=== PATIENT | female | born 1970 | race Caucasian/White ===

== ENCOUNTER → 2020-07-20 | Outpatient (CLI) | payer BC ==
--- NOTE | 2020-07-20 15:33 | REP ---
INDICATION: DIAG MAMMO/R BREAST MASS; R BREAST MASS. COMPARISON: no comparison breast imaging. TECHNIQUE: Bilateral CC and MLO) view(s) were taken. Magnified focal spot-compression CC, mediolateral, and mediolateral oblique images of the right breast are obtained. 3D tomography is carried out. Targeted right breast sonography is carried. FINDINGS: Breast parenchyma is heterogeneously dense in a pattern which may inhibit the sensitivity of mammography. However, the palpable mass is clearly seen to correspond to a spiculated irregularly marginated large mass in the 6 o'clock position of the right breast. This measures 3.5 x 2.1 by 2.7 centered meters mammographically. It contains numerous polymorphous excess Damon microcalcifications. It has spiculated margins. No other suspicious abnormality is observed in the right breast. The left breast shows no evidence of mass, architectural distortion, microcalcification or worrisome skin change. The Volpara volumetric breast density pattern is C. Targeted sonographic findings: Scanning at the area of the palpable lump at 6 o'clock position shows a hypoechoic spiculated irregularly marginated mass measuring 4.4 x 3.3 x 2.7 cm sonographically. There is internal blood flow. On some images there is a taller than wide configuration but overall the long axis is parallel to the skin. The lesion is certainly suspicious by ultrasound criteria.. IMPRESSION: BI-RADS category 5 highly suspicious right breast mammogram and ultrasound findings. Spiculated mass. A biopsy is recommended. This patient's [facility] lifetime breast cancer risk assessment score is 8.7%. This mammogram was interpreted with the aid of an FDA-approved computer-aided detection system. The patient states she had a clinical breast exam in June of 2020. The patient letter being requested is M4. RECOMMENDATION: Ultrasound-guided needle biopsy right breast mass is recommended with marker clip placement and post clip placement unilateral right breast mammography.. <Electronically signed by Henry Liang > 07/20/20 [id number]
== END ==
LOC: M WHC 10:51
PROVIDERS: ATTEND Physician Assistant
DX: N63.10 Unspecified lump in the right breast, unspecified quadrant (principal); R92.0 Mammographic microcalcification found on diagnostic imaging of breast
CPT/HCPCS: 76642; 77066; G0279

== ENCOUNTER → 2020-07-26 | Outpatient (CLI) | payer BC ==
[~2020-07-26] MED LIST: PARA1IUD IU
[2020-07-26 12:19] VITALS: BP 118/82
--- NOTE | 2020-07-26 17:04 | REP ---
INDICATION: N63.10 RT BREAST MASS,ABN RT AXILLARY LYMPH NODE,US GUIDED B. COMPARISON: Comparison sonography right breast 20 July 2020.. TECHNIQUE: Ultrasound guidance provided. FINDINGS: Sonographic guidance is provided to Dr. Lindsey performed ultrasound-guided needle biopsy and marker clip placement procedure right breast and right axilla. IMPRESSION: Sonographic guidance for needle biopsy procedure. <Electronically signed by Henry Liang > 07/26/20 [id number]
--- NOTE | 2020-07-26 17:07 | REP ---
INDICATION: N63.10 RT BREAST MASS,POST US GUIDED BIOPSY. Marker clip placement views. COMPARISON: Comparison mammography 20 July 2020. TECHNIQUE: Laterally exaggerated craniocaudal, true mediolateral, and mediolateral oblique mammographic views are obtained. This mammogram was interpreted with the aid of an FDA-approved computer-aided detection system. FINDINGS: The previously noted spiculated mass containing suspicious microcalcifications is again noted essentially unchanged. Needle biopsy marker clip is seen along the anterior inferior margin of the mass in good position. No hematoma is seen. . : IMPRESSION: Marker clip in good position left breast mass. RECOMMENDATION: Treatment according to biopsy results.. <Electronically signed by Henry Liang > 07/26/20 [id number]
--- NOTE | 2020-07-26 17:11 | REP ---
INDICATION: N63.0 PALPABLE MASS RT BREAST,R59.9 ABN RT AXILLARY LYMPH NO. Abnormal right axillary lymph node. Right breast mass. Lymph node enlargement. COMPARISON: Comparison is made with recent mammography.. TECHNIQUE: Targeted right axillary sonography. FINDINGS: Right axillary ultrasound is performed. There is a nearly anechoic enlarged abnormal lymph node in the right axilla measuring 2.5 x 2.5 x 0.9 cm. No hilar fatty architecture is seen. This is suspicious for metastatic disease. In addition, there are 3 normal appearing axillary lymph nodes with cortical margins less than 3 mm and central hilar hyperechoic fatty architecture. These measure as follows: 1.3 x 1.5 x 0.7, 0.7 x 0.6 x 0.4, and 0.9 x 0.7 x 0.3 cm respectively. No other significant finding. IMPRESSION: BI-RADS category 4 suspicious findings in the right axillary soft tissues. There is a abnormal enlarged lymph node in the right axilla 2.5 cm in greatest diameter. Metastatic disease must be suspected. Ultrasound-guided needle biopsy is being arranged. <Electronically signed by Henry Liang > 07/26/20 [id number]
--- NOTE | 2020-07-26 17:18 | REP ---
INDICATION: N63.0 PALPABLE MASS RT BREAST. Denser tissue at 2 o'clock and 10 o'clock position right breast. Palpable mass. COMPARISON: Recent right breast sonography.. TECHNIQUE: Targeted right breast sonography is carried out in the 2-3 o'clock and 10 o'clock positions as requested. FINDINGS: Heterogeneous fibroglandular background echotexture is seen. In the right breast at 3 o'clock, there is a 0.7 x 0.5 x 0.3 cm hypoechoic oval-shaped area with its long axis parallel to the skin. No internal vascularity was seen. This does not appear to represent a simple cyst. I cannot exclude a malignant focus. In the 10 o'clock position, 4 cm from the nipple, there is a complex cystic lesion measuring 1.0 x 0.4 x 0.7 cm. There is an adjacent blood vessel. There is enhanced through transmission. This has a benign appearance. 10 o'clock position in the right breast, 6 cm from the nipple, there is a cluster of simple appearing cysts within aggregate dimension of 1.1 cm. This has a benign appearance as well. IMPRESSION: Targeted sonography of the right breast performed. In addition to the known malignant mass which was already biopsied, at 3 o'clock position in the right breast, there is a 0.7 cm hypoechoic nodule which is does not meet criteria of a simple cyst. Malignancy cannot be excluded here. <Electronically signed by Henry Liang > 07/26/20 [id number]
--- NOTE | 2020-07-30 15:35 | ROOPDOC ---
[facility] Report Of Operation Report of Operation DATE OF PROCEDURE: 07/26/20 DIAGNOSIS: right breast suspicious lesion and right axillary abnormal lymph node with BIRADS5 mammogram PROCEDURE: Ultrasound guided biopsy of right breast suspicious lesion with clip placement and ultrasound guided biopsy of right axillary suspicious lymph node with clip placement SURGEON: Mallika Freire BLOOD LOSS: minimal COMPLICATIONS: none Lidocaine 1% LOT [id number] Expiration 09/2023 Sodium Bicarbonate 8.4% LOT [id number] Expiration 09/2020 R BREAST BX: Hydromark clip LOT [id number] Expiration 03/2023 SHAPE 3 Bx device: BARD [id number] x10 cm LOT [id number] Expiration 04/2023 R LYMPH NODE BX: Hydromark clip LOT [id number] Expiration 03/2023 SHAPE 4 Bx device: TEMNO 18G x 20 cm LOT [id number] Expiration 10/2023 Informed consent was obtained. The most common risk and possible complications including bleeding, hematoma, bruising, infection, injury to surrounding structures were explained to the patient and the patient expressed understanding. Patient was placed on the bed in the supine position. Appropriate time out was done stating patients name, date of , and the procedure to be performed. The right breast was prepped and draped in the usual fashion. The ultrasound was used to confirm the location of the lesions in the right breast at 6:00 and the lymph node with 7 mm cortical thickness was found in the right axilla. Procedure was started with the biopsy of the right breast. Plain Lidocaine 1% and 8.4% sodium bicarbonate 10:1 mix was used to anesthetize the skin, the biopsy site and tissues along the anticipated biopsy tract. Small skin incision was made with blade number 11. BARD Marquee 14G cannula with introducer ([id number]) was inserted through the incision and advanced under the ultrasound guidance to position immediately adjacent to the lesion. Next, the introducer was removed and BARD Marquee 14G biopsy device was places in the cannula. Pre- biopsy imaging, and post-biopsy imaging were captured. Five good core biopsies were taken at various levels of the lesion. Specimen was placed in formaldehyde, labeled with appropriate biopsy site and patients name, and sent to pathology for evaluation. Next, the biopsy device was withdrawn and a clip introducer was inserted into the biopsy site via the cannula. The SHAPE 3 Hydromark clip was deployed under sonographic guidance. Post-clip placement image was captured. Manual pressure over the biopsy cavity and tract was held after the clip introducer was withdrawn. No bleeding was noted upon removal of the pressure. At this time, our attention was shifted toward the abnormal right axillary lymph node. The right axilla was prepped and draped in the usual fashion. The ultrasound was used to confirm the location of enlarged lymph node with cortex measuring 7 mm. Plain Lidocaine 1% and 8.4% sodium bicarbonate 10:1 mix was used to anesthetize the skin, the biopsy site and tissues along the anticipated biopsy tract. Small skin incision was made with blade number 11. Temno 18G cannula with introducer was inserted through the incision and advanced under the ultrasound guidance to position immediately adjacent to the enlarged lymph node with 7 mm cortex. Next, the introducer was removed and Temno 18G biopsy device was places in the cannula. Pre-biopsy imaging, and post-biopsy imaging were captured. Five good core biopsies were taken at various levels of the lesion. Specimen was placed in formaldehyde, labeled with appropriate biopsy site and patients name, and sent to pathology for evaluation. Next, the biopsy device and cannula were withdrawn and a clip introducer was inserted into the position immediately adjacent to the biopsied lymph node. The SHAPE 4 Hydromark clip was deployed under sonographic guidance. Post-clip placement image was captured. Manual pressure over the biopsy cavity and tract was held after the clip introducer was withdrawn. No bleeding was noted upon removal of the pressure. Post-biopsy mammogram of the right breast and axilla was obtained and showed breast clip in expected position. Despite exaggerated axillary views, no right axillary clip was seen on mammography likely due to high axillary position. Postprocedural dressing was placed. Patient tolerated procedure well. Discharge instructions were discussed with the patient and the patient expressed understanding. MALLIKA FREIRE DO Jul 30, 2020 15:35
== END ==
LOC: M WHCPRO 10:31
PROVIDERS: ATTEND Surgery
DX: N63.10 Unspecified lump in the right breast, unspecified quadrant (principal); R59.0 Localized enlarged lymph nodes

== ENCOUNTER → 2020-08-04 | Outpatient (CLI) | payer BC ==
[~2020-08-04] MED LIST changes: +PROHANCE 279.3MG/ML 15ML VIAL As Ordered ONE
--- NOTE | 2020-08-04 17:19 | REP ---
INDICATION: BREAST CA, STAGING. COMPARISON: Comparison mammography 20 July 2020. Comparison sonography is from that date as well as 26 July 2020. The patient is status post ultrasound-guided needle biopsy of a malignant mass in the right breast and enlarged right axillary lymph node. Two marker clips were placed. TECHNIQUE: Three Shaista MRI imaging was performed with a dedicated breast coil. Axial, coronal, and sagittal T1 and T2 weighted scans were obtained with and without fat saturation in the usual fashion. The study includes dynamically acquired post gadolinium-enhanced imaging with image subtraction. Maximum intensity projection and multi planar reformation imaging is included as well. This study is interpreted with the aid of [employer], an FDA approved computer aided detection (CAD) software program, on a dedicated breast MRI workstation. The gadolinium enhancement dose is 12 mL of intravenous ProHance. FINDINGS: There is a moderate amount of fibroglandular tissue bilaterally corresponding with the mammographic pattern. There is moderate background parenchymal enhancement. The known biopsy-proven malignancy in the right breast is seen as an irregular spiculated lobulated mass in the right central breast centered at approximately 6 o'clock middle 3rd. By MR, dimensions of 3.4 by 2.6 x 1.9 cm are observed. There is a small subcentimeter satellite nodule medially. The mass enhances in shows washout kinetics although it is initial enhancement is below DynaCAD color threshold. It enhances heterogeneously. There is a HydroMARK marker clip device anterior to the mass in the right breast. There is an enlarged axillary lymph node containing a HydroMARK clip device. This is best seen on T2 weighted scans. This lymph node measures 2.1 x 1.3 cm. No other adenopathy is seen. There are scattered small T2 hyperintense foci in both breasts consistent with small cysts and fibroadenomas. No other breast mass is appreciated. No other evidence of adenopathy is seen. IMPRESSION: BI-RADS category 6 known right breast malignancy. There is a single enlarged lymph node visible in the right axilla. No other suspicious target in either breast.. <Electronically signed by Henry Liang > 08/04/20 [id number]
== END ==
LOC: M RAD 14:23
PROVIDERS: ATTEND Surgery
DX: C50.911 Malignant neoplasm of unspecified site of right female breast (principal)
CPT/HCPCS: A9576; C8908

== ENCOUNTER → 2020-08-08 | Outpatient (CLI) | payer BC ==
[~2020-08-08] MED LIST changes: +GASTROGRAFIN SOLUTION 30ML (Q9963) As Ordered ONE; +ISOVUE-370 76% 100ML VIAL As Ordered ONE; -PROHANCE 279.3MG/ML 15ML VIAL As Ordered ONE
--- NOTE | 2020-08-08 17:43 | REP ---
INDICATION: BREAST CA, STAGING. COMPARISON: Chest x-ray 10/04/2008 TECHNIQUE: Bolus 75 mL Isovue 370 scanning through the chest with coronal and sagittal reconstructions. FINDINGS: CT chest: The lung dupont are well inflated. There is no pleural effusion, pleural thickening, calcified pleural plaque or pleural based mass. There is a 3 mm subpleural nodule posteriorly in the right upper lobe. Along the posterior axillary line on image 23 on image 61 in the right midlung zone is a semi solid 4 mm nodule. The left lung show no nodule, infiltrate or other acute finding. Heart is not enlarged. There is no pericardial thickening or effusion. The aorta is without aneurysm or dissection. The main, right, left and lobar pulmonary arteries in the mediastinum and proximal hilar regions were without filling defects. There is no pathologic sized mediastinal, hilar or supraclavicular adenopathy. Irregular spiculated hyperdense mass in the right breast corresponding to the mammographic abnormality, 3.7 cm vertically by 2.9 cm transverse. Right axillary adenopathy seen, none on the left. The bone windows show sternum, manubrium, medial clavicles, visualized portions of scapula/humeral heads and ribs all unremarkable. Spine shows no compression deformity or destructive lesion. No hiatal hernia. Please see the abdominal CT for description of upper abdominal contents. IMPRESSION: 1. 3.7 x 2.9 cm spiculated hyperdense mass in the right breast from biopsy-proven carcinoma there are enlarged right axillary nodes present. 2. The lung dupont show a couple of small nodules that are noncalcified in the right lobe, these may be followed. The largest of these is 4 mm. 3. No mediastinal, hilar or supraclavicular adenopathy and no focal bone lesion. <Electronically signed by Elijah Portillo > 08/08/20 [id number]
--- NOTE | 2020-08-08 17:51 | REP ---
INDICATION: BREAST CA, STAGING. COMPARISON: None TECHNIQUE: Oral Gastrografin mixture per our bowel contrast protocol given. Bolus of 75 cc Isovue 370 scanning through the abdomen and pelvis with coronal and sagittal reconstructions. Delayed axial images also obtained. No hiatal hernia. FINDINGS: CT abdomen: Stomach well filled with oral contrast but no hiatal hernia and no mass. There is no hepatosplenomegaly, focal hepatic or splenic lesion. There is no intrahepatic biliary dilatation or ascites in the upper abdomen. Gallbladder shows no calcified stone or mass. Pancreas shows no calcification in the intrapancreatic common duct or pancreatic duct dilatation. No abnormal calcifications, adjacent adenopathy or fluid collections. Adrenal glands normal. The kidneys show no stone, mass, cyst or hydronephrosis. Small bowel loops are fluid-filled are contrast filled and without abnormal dilatation or wall thickening. No mesenteric infiltration or edema. No bowel wall thickening. There is stool and gas scattered in the colon without colitis or diverticulitis. Appendix is seen and normal. Lung window review of all CT slices shows no perforation or free air. No generalized abdominal ascites. CT pelvis: 0 bone windows with the abdomen and pelvis show no focal bone lesion in the spine to suggest destruction or bony metastatic disease or some minor degenerative disc and facet arthropathy changes in the spine. Sacrum, SI joints, pelvis and hips show minimal degenerative change but no destructive lesion or fracture. Uterus is retroverted. There is an IUD within. There is no adnexal mass or pelvic free fluid distal left colon sigmoid and rectum unremarkable small bowel loops in the pelvis are contrast or fluid-filled but without any acute finding. No ventral or inguinal hernia nor pathologic sized inguinal adenopathy. IMPRESSION: 1. No abdominal or pelvic adenopathy, ascites, mass or focal bone lesions to suggest metastatic disease. 2. Liver, spleen, adrenal glands kidneys without mass or focal lesion. 3. Gallbladder, stomach, small bowel loops and colon grossly intact. Appendix normal. <Electronically signed by Elijah Portillo > 08/08/20 [id number]
== END ==
LOC: M RAD 14:51
PROVIDERS: ATTEND Internal Medicine Hematology & Oncology
DX: C50.911 Malignant neoplasm of unspecified site of right female breast (principal); R91.8 Other nonspecific abnormal finding of lung field
CPT/HCPCS: 71260; 74177; Q9963; Q9967

== ENCOUNTER → 2020-08-16 | Outpatient (CLI) | payer BC ==
[~2020-08-16] MED LIST changes: -GASTROGRAFIN SOLUTION 30ML (Q9963) As Ordered ONE; -ISOVUE-370 76% 100ML VIAL As Ordered ONE
[2020-08-16 12:22] VITALS: BP 122/74
--- NOTE | 2020-08-16 12:47 | REP ---
INDICATION: U/S GUIDED BX/RIGHT BREAST MASS/CK CLIP PLACEMENT. COMPARISON: 07/26/2020. TECHNIQUE: ML and CC views right breast. FINDINGS: The spiculated mass containing multiple pleomorphic microcalcifications is again seen in the right breast posterior to the nipple. The previously noted biopsy clip is seen just anterior and inferior to the mass. There is a new biopsy clip present anterior and a little more medial to the mass. IMPRESSION: New biopsy clip deployed just anterior and medial to previously noted spiculated mass right breast. RECOMMENDATION: None. <Electronically signed by Deon Venegas > 08/16/20 124
--- NOTE | 2020-08-16 16:02 | REP ---
INDICATION: US GUIDED BX/RIGHT BREAST MASS. COMPARISON: 07/26/2020. TECHNIQUE: Real-time sonographic evaluation right breast performed. FINDINGS: Ultrasound guidance was provided for Dr. Lindsey who performed ultrasound-guided biopsy of a hypoechoic subcentimeter nodule right breast 3 o'clock. The nodule is seen on the ultrasound images. IMPRESSION: Ultrasound guidance provided for Dr. Lindsey who performed ultrasound-guided biopsy of a subcentimeter hypoechoic lesion 3 o'clock right breast. RECOMMENDATION: Clinical follow-up. <Electronically signed by Deon Venegas > 08/16/20 1554
--- NOTE | 2020-08-17 17:17 | ROOPDOC ---
[facility] [place] Of Operation Report of Operation DATE OF PROCEDURE: 08/16/20 DIAGNOSIS: right breast suspicious lesion PROCEDURE: Ultrasound guided biopsy of right breast suspicious lesion at 3:00 with clip placement SURGEON: Mallika Freire BLOOD LOSS: minimal COMPLICATIONS: none Lidocaine 1% LOT [id number] Expiration 09/2023 Sodium Bicarbonate 8.4% LOT [id number] Expiration 09/2020 Hydromark clip LOT [id number] Expiration 01/2023 SHAPE : 4 Bx device: BARD [id number] x10 cm LOT [id number] Expiration 04/2023 Informed consent was obtained. The most common risk and possible complications including bleeding, hematoma, bruising, infection, injury to surrounding structures were explained to the patient and the patient expressed understanding. Patient was placed on the bed in the supine position. Appropriate time out was done stating patients name, date of , and the procedure to be performed. The right breast was prepped and draped in the usual fashion. The ultrasound was used to confirm the location of the lesion in the right left breast at 3:00. Plain Lidocaine 1% and 8.4% sodium bicarbonate 10:1 mix was used to anesthetize the skin, the biopsy site and tissues along the anticipated biopsy tract. Small skin incision was made with blade number 11. BARD Marquee 14G cannula with introducer ([id number]) was inserted through the incision and advanced under the ultrasound guidance to position immediately adjacent to the lesion. Next, the introducer was removed and BARD Marquee 14G biopsy device was places in the cannula. Pre-biopsy imaging, and post-biopsy imaging were captured. Five good core biopsies were taken at various levels of the lesion. Specimen was placed in formaldehyde, labeled with appropriate biopsy site and patients name, and sent to pathology for evaluation. Next, the biopsy device was withdrawn and a clip introducer was inserted into the biopsy site via the cannula. The SHAPE 4 Hydromark clip was deployed under sonographic guidance. Post-clip placement image was captured. Manual pressure over the biopsy cavity and tract was held after the clip introducer was withdrawn. No bleeding was noted upon removal of the pressure. Post-biopsy mammogram of the right breast was obtained and showed SHAPE 4 clip in expected position. Of note the original clip which was initially placed into the palpable mass, is noted to be anterior to the mass. Postprocedural dressing was placed. Patient tolerated procedure well. Discharge instructions were discussed with the patient and the patient expressed understanding. MALLIKA FREIRE DO Aug 17, 2020 17:17
== END ==
LOC: M WHCPRO 11:05
PROVIDERS: ATTEND Surgery
DX: C50.911 Malignant neoplasm of unspecified site of right female breast (principal)

== ENCOUNTER → 2020-08-28 | Outpatient (CLI) | payer BC ==
--- NOTE | 2020-08-29 10:00 | ECHO ---
DATE OF PROCEDURE: 08/28/2020 Age: 50 Gender: Female Height: 165 cm Weight: 60 kg REFERRING PHYSICIAN: Dr. Harrington. INDICATION: Chemotherapy. MEASUREMENTS: IVS 0.7 cm LV 4.6 cm LVPW 0.9 cm LA 3.4 cm Aorta 2.9 cm RV 2.8 cm IVC 1.2 cm Mitral E wave velocity 110 A wave 47 E prime septal 12.5 E prime lateral 14.8 FINDINGS: This study is of good technical quality. Patient is in sinus rhythm. Left ventricle is normal size and hyperdynamic contractility, I estimated LVEF approximately 70%. Right ventricle also is normal size and systolic function. Both atria appear normal. Aortic, mitral, and tricuspid valves appear normal. Pulmonic valve was not well seen. No pericardial effusion is noted. Inferior vena cava is of normal size. Aortic root and aortic arch appear normal. Abdominal aorta was reasonably well seen and appeared normal as well. Doppler interrogation reveals competent aortic valve. There is trace mitral and trace tricuspid insufficiency. Unfortunately, quality of TR jet was not sufficient to estimate pulmonary artery pressure. Mitral inflow pattern and tissue Doppler imaging of mitral annulus revealed normal diastolic function. CONCLUSIONS: 1. Study is of good technical quality, underlying sinus rhythm. 2. Normal LV size with normal LV systolic function, estimated LVEF approximately 70%. Normal diastolic function. 3. No significant valvular disease. 4. Normal central venous pressure. 5. Unable to estimate pulmonary artery pressure but no signs to suggest pulmonary hypertension. 6. Essentially normal echocardiogram. [facility]
== END ==
LOC: M CARPUL 08-25 11:29
PROVIDERS: ATTEND Internal Medicine Hematology & Oncology
DX: C50.911 Malignant neoplasm of unspecified site of right female breast (principal); C77.3 Secondary and unspecified malignant neoplasm of axilla and upper limb lymph nodes

== ENCOUNTER → 2020-09-18 | Outpatient (CLI) | payer BC ==
--- NOTE | 2020-09-18 17:17 | REP ---
INDICATION: BREAST CA STAGING. COMPARISON: None. TECHNIQUE/RADIOTRACER AND DOSE: Following the intravenous administration of 21.1 mCi technetium 99 M MDP, patient's whole body is imaged in multiple projections. FINDINGS: Arthritic uptake is seen in the knees and ankles. There is no compelling scintigraphic evidence of osseous metastases. Renal and bladder activity are seen. IMPRESSION: No compelling scintigraphic evidence of osseous metastases. <Electronically signed by Deon Venegas > 09/18/20 [id number]
== END ==
LOC: M RAD 10:18
PROVIDERS: ATTEND Internal Medicine Hematology & Oncology
DX: M17.0 Bilateral primary osteoarthritis of knee (principal); M19.071 Primary osteoarthritis, right ankle and foot; M19.072 Primary osteoarthritis, left ankle and foot; C50.919 Malignant neoplasm of unspecified site of unspecified female breast
CPT/HCPCS: 78306; A9503

== ENCOUNTER → 2020-10-11 | Outpatient (CLI) | payer BC ==
[~2020-10-11] MED LIST changes: +DEXA4TA PO; +LIDOCAINE 1% MDV 20ML VIAL As Ordered ONE; +MIDAZOLAM INJ 2MG/2ML VIAL (J2250 PER 1MG) As Ordered ONE; +PROC10TA4 PO; +PROMETHAZINE INJ 25 MG/ML VIAL (J2550) As Ordered ONE; +ceFAZolin 2 GM/D5W 50 ML IV BAG (J0690 PER 500MG) As Ordered ONE; +diphenhydrAMINE 50MG/ML VIAL (J1200) As Ordered ONE; +fentaNYL 100 MCG/2 ML INJECTION (J3010) As Ordered ONE
--- NOTE | 2020-10-11 09:52 | IRHP ---
[facility] IR Pre-Procedure H & P General Date of Service: Oct 11, 2020 Procedure: Same Day Surgery Interval History and Physical I have seen the patient and reviewed last H & P performed within 30 days. There is no significant interval change. History of Present Illness Chief Complaint The patient is a 50-year-old female admitted with a reason for visit of Rt Breast Ca. PRE-PROCEDURE DIAGNOSIS: Right-sided breast cancer HEART: Normal rate. LUNGS: Normal breathing at rest. ASA Classification ASA Classification: I-Healthy, II-Mild systemic disease Mallampati Score: I NPO: Yes Problems with prior sedation: No Obstructive Sleep Apnea: No Plan moderate sedation Allergies Coded Allergies: No Known Drug Allergies (Verified Allergy, Unknown, 08/03/20) Home Medications Miscellaneous Medications Copper (Paragard T 380-A), 1 IUD IU, (Reported) Discontinued Medications Dexamethasone (Dexamethasone), 4 MG PO BID Discontinued Reason: Pt states not taking Prochlorperazine Maleate (Prochlorperazine Maleate), 10 MG PO Q4H PRN for NAUSEA OR VOMITING Discontinued Reason: Pt states not taking VS, I&O, 24H, Fishbone Vital Signs/I&O Vital Signs Date Time Temp Pulse Resp B/P (MAP) Pulse Ox O2 Delivery O2 Flow Rate FiO2 10/11/20 09:10 98.0 81 18 99 Room Air OSITO WOOD MD Oct 11, 2020 09:52
[2020-10-11 12:40] VITALS: BP 125/63
--- NOTE | 2020-10-12 11:43 | IRPON ---
IR Postoperative Note Date Of Procedure: Oct 11, 2020 Time Of Procedure: 16:00 IR Postoperative Note IR Ultrasound and fluoroscopy guided port placement. IR Ultrasound of the neck. IR Moderate sedation. Clinical indication: Right-sided breast cancer. Physician: Dr. Melvin. Procedure: The patient was advised of the benefits, risks, and alternatives of the procedure and informed consent was obtained. A time-out was performed with verification of the patient's name, MRN, site of procedure and type of procedure to be performed. The patient was positioned in the supine position on the angiographic table. The site was prepped and draped in the usual sterile fashion. Moderate sedation was performed by the physician including the presence of an independent trained RN who assisted and monitored the patient's level of consciousness and physiologic status. Following the administration of fentanyl and Versed , the physician spent 45 minutes of continuous face to face time with the patient. Ultrasound of the neck reveals a patent and compressible left internal jugular vein. A tag meter operator radiograph reveals no gross abnormality. The neck and anterior chest wall were anesthetized with lidocaine. The left internal jugular vein was accessed using a microintroducer needle under ultrasound guidance, via a lateral approach. An 018 wire was advanced into the superior vena cava, the needle was removed and a microsheath was placed. An Amplatz wire was then passed into the inferior vena cava. An incision at the internal jugular vein access site and anterior chest wall were made using a scalpel. An incision was made at the anterior chest wall. A small pocket was created using a combination of blunt and sharp dissection. A tunneling device was then used to pass the catheter from the pocket to the neck puncture site. An 8- Scottish Ctrip Smart power port was then positioned in the pocket. The catheter was then measured and cut. The introducer sheath was exchanged for a peel-away sheath. The catheter was passed through the peel-away sheath into the internal jugular vein and the peel-away sheath was removed. The port tip was positioned at the cavoatrial junction. The port was then accessed with a Alcaraz needle. The port flushes and aspirates well. The puncture site in the neck was closed. The chest wall incision was then closed with 2-0 Vicryl and 4-0 Monocryl. Glue and Steri- Strips were applied. A sterile dressing was then applied. The patient tolerated the procedure well and was returned to the PRU in stable condition. Estimated blood loss: <5 ml. Complications: None. Conclusion: 1. Successful placement of an 8-Scottish Angio dynamics Smart power port via the left internal jugular vein. The port is ready for immediate use. 2. Patient to follow up in IR clinic in 2 weeks. Thank you for this referral. OSITO MELVIN MD Oct 12, 2020 11:43
== END ==
LOC: M IRPRO 08:04
PROVIDERS: ATTEND Radiology Diagnostic Radiology
DX: C50.911 Malignant neoplasm of unspecified site of right female breast (principal); C77.3 Secondary and unspecified malignant neoplasm of axilla and upper limb lymph nodes
CPT/HCPCS: 36561; 99152; 99153; C1769; C1788; C1894; J0690; J1200; J1642; J1644; J2250; J3010

== ENCOUNTER → 2021-03-09 | Outpatient (CLI) | payer BC ==
[~2021-03-09] MED LIST changes: +IRON27TA2 PO; -LIDOCAINE 1% MDV 20ML VIAL As Ordered ONE; -MIDAZOLAM INJ 2MG/2ML VIAL (J2250 PER 1MG) As Ordered ONE; +PROHANCE 279.3MG/ML 5ML VIAL As Ordered ONE; -PROMETHAZINE INJ 25 MG/ML VIAL (J2550) As Ordered ONE; -ceFAZolin 2 GM/D5W 50 ML IV BAG (J0690 PER 500MG) As Ordered ONE; -diphenhydrAMINE 50MG/ML VIAL (J1200) As Ordered ONE; -fentaNYL 100 MCG/2 ML INJECTION (J3010) As Ordered ONE
--- NOTE | 2021-03-09 17:03 | REP ---
INDICATION: MAL CHANDRAKANT OF RT BREAST, ASSESSING CHEMO. COMPARISON: MRI 08/04/2020. TECHNIQUE: Three Shaista MRI imaging was performed with a dedicated breast coil. Axial, coronal, and sagittal T1 and T2 weighted scans were obtained with and without fat saturation in the usual fashion. The study includes dynamically acquired post gadolinium-enhanced imaging with image subtraction. Maximum intensity projection and multi planar reformation imaging is included as well. This study is interpreted with the aid of AOBiome, an FDA approved computer aided detection (CAD) software program, on a dedicated breast MRI workstation. The gadolinium enhancement dose is 10 mL of intravenous ProHance. FINDINGS: There is moderate diffuse fibroglandular tissue present bilaterally. No significant cystic change is seen in either breast. There is no significant axillary adenopathy. The previously noted enlarged right axillary lymph node has significantly decreased in size and now measures approximately 10 x 5 mm. There is mild background parenchymal enhancement bilaterally. On the prior study the large enhancing malignant mass was identified at 6 o'clock and measured approximately 3.4 x 2.6 x 1.9 cm. On today's exam there is no masslike enhancement in either breast. There are a few ill-defined subcentimeter type 1 non mass foci of enhancement at the site of the previously identified mass in the right breast. There is no enhancement at the medially located biopsy clip in the right breast. IMPRESSION: BI-RADS category 6 known right breast cancer. There appears to be an excellent response to chemotherapy. The large mass in the right breast inferiorly is not visualized. There are a few ill-defined subcentimeter type 1 non mass foci of enhancement at the site of the previously identified mass in the right breast. There is no enhancement at the medially located biopsy clip in the right breast. The previously noted right axillary lymph node has significantly decreased in size now measuring 10 x 5 mm. No new enhancing mass or morphologic abnormality is seen bilaterally. <Electronically signed by Deon Venegas > 03/09/21 [id number]
== END ==
LOC: M RAD 14:14
PROVIDERS: ATTEND Surgery
DX: C50.911 Malignant neoplasm of unspecified site of right female breast (principal)

== ENCOUNTER → 2021-03-13 | Outpatient (CLI) | payer BC ==
[~2021-03-13] MED LIST changes: -PROHANCE 279.3MG/ML 5ML VIAL As Ordered ONE
--- NOTE | 2021-03-13 08:47 | REP ---
INDICATION: Assess chemotherapeutic response to tumor load. COMPARISON: 07/26/2020, 08/16/2020 TECHNIQUE: Real-time sonographic evaluation of 2 right breast lesions 1 at 6 o'clock and 1 at 3 o'clock along with real-time sonographic evaluation of the right axilla follow-up lymph node biopsy. FINDINGS: Today's examination shows a clip at the 3 o'clock position and no evidence of a concomitant mass. At the 6 o'clock position a clip is seen adjacent to a 1.5 x 0.6 x 0.2 cm sized solid irregular nodule which has decreased in size from the 07/26/2020 exam when it measured 4.4 x 3.3 x 2.7 cm. The right axillary mass today measures 1.7 x 0.5 x 0.9 cm. Previously on the 07/26/2020 exam the mass measured 2.5 x 2.5 x 0.9 cm. IMPRESSION: Today's ultrasound examination shows a chemotherapeutic response on all 3 lesions as described above. <Electronically signed by Floyd Singh > 03/13/21 [id number]
== END ==
LOC: M WHC 06:50
PROVIDERS: ATTEND Surgery
DX: C50.911 Malignant neoplasm of unspecified site of right female breast (principal)

== ENCOUNTER → 2021-04-05 | Outpatient (CLI) | payer BC ==
[~2021-04-05] MED LIST changes: +AEROMIS XX; +ALBU8.5H; +MONT10TA10 PO
[2021-04-05 15:20] LABS: HEMATOCRIT 40.1 % (36.0-47.0)
[2021-04-05 15:53] LABS: C REACTIVE PROTEIN QUANTITATIV < 0.30 MG/DL (0.00-0.30); CHOLESTEROL LEVEL 198 MG/DL (<200); CHOLESTEROL RISK RATIO 2.302 (<5); FERRITIN 1006 NG/ML (8-252); HDL CHOLESTEROL 86 MG/DL (>40); IRON (FE) 167 UG/DL (50-170); LDL CHOLESTEROL 96 MG/DL (<100); NON-HDL-C 112 MG/DL; TOTAL IRON BINDING CAPACITY 242 UG/DL (250-450); TOTAL PROTEIN 7.3 GM/DL (6.4-8.2); TRIGLYCERIDES LEVEL 79 MG/DL (<150); VITAMIN B12 LEVEL 517 PG/ML (247-911)
== END ==
LOC: M PLALAB 12:27
PROVIDERS: ATTEND Family Medicine
DX: D75.89 Other specified diseases of blood and blood-forming organs (principal); E83.19 Other disorders of iron metabolism

== ENCOUNTER → 2021-04-05 | Outpatient (CLI) | payer BC | LOC: M LABSMTC 09:10 | PROVIDERS: ATTEND Anesthesiology | DX: Z01.818 Encounter for other preprocedural examination (principal); Z11.52 Encounter for screening for COVID-19 ==

== ENCOUNTER 2021-04-10 06:25 | Observation (INO) | payer BC ==
[~2021-04-10] VITALS: Ht 165.1 cm; Wt 55.7 kg
[~2021-04-10 06:25] MED LIST changes: +HEPARIN SOD (PORCINE) 5000UNITS/ML 1ML VIAL/SYRINGE SQ ONE; +LIDOCAINE 1% MDV 20ML VIAL SQ PRN; +LR 1,000 ML IV ONE; +NS 1,000 ML IV ONE; +ceFAZolin SOD 2 GM in IV 1 EA IV ONE
--- OUTSIDE RECORDS SUMMARY | 2021-04-10 06:28 | CCD ---
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 Active confirmed 339767189 Problem Asthma, mild intermittent J45.20 Active confirmed 384428245 Problem Malignant neoplasm of right female breast, unspecified estrogen receptor status, unspecified site of breast C50.911 Active confirmed 877697189 Problem Malignant neoplasm of unspecified site of unspec ified female breast C50.919 Active confirmed 020486070 Problem Breast cancer C50.919 Active confirmed 75495 7009 Problem Constipation K59.00 Active confirmed 0958346 8 ALLERGIES No Known Allergies ENCOUNTERS from 1972 to 2021-03-13 Encounter Location Date Provider Diagnosis [facility] [address] [place] [address] [place] [address] Feb, Gretel Patrickjanlouie Malignant neoplasm of right female breast, unspecified estrogen receptor status, unspecified site of breast C50.911 ; Breast mass, right N63.10 ; Lymph node enlargement R59.9 ; Genetic screening Z13.79 ; Asthma, unspecified asthma severity, unspecified whether complicated, unspecified whether persistent J45.909 and Alcohol use Z72.89 IMMUNIZATIONS No Information SOCIAL HISTORY Tobacco Use: Social History Observation Description Date Details (start date - stop date) Never Smoker Sex Assigned At : Social History Observation Description Sex Assigned At Unknown Education: Question Answer Notes Level of Education: College Language: Question Answer Notes Languages spoken: Andorran Rastafari: Question Answer Notes Rastafari 21 Yarsani Sexual Hx: Question Answer Notes Had sex in the last 12 months (vaginal, oral, or anal)? No LMP: 10/2020 Have you ever had an STD? No Alcohol Screening: Question Answer Notes Did you have a drink containing alcohol in the past year? Ye s Points 2 Interpretation Negative How often did you have six or more drinks on one occas ion in the past year? Never (0 points) How many drinks did you have on a typica l day when you were drinking in the past year? 3 or 4 (1 point) How often did you have a drink containing alcohol in t he past year? Monthly or less (1 point) Tobacco Use: Question Answer Notes Are you a: never smoker REASON FOR REFERRAL from 1972 to 2021-03-13 Reason Right breast cancer, plannin g for mastectomy. Please discuss reconstructive options. Diagnosis 1 Malignant neoplasm of right female breast, unspecified estrogen receptor status, unspecified site of breast (C50.911) Referral Organization [facility] Referring Provider First Name Gretel Referring Provider Last Name César Referring Provider Specialty Surgery Referred Provider Samina Shane Referred Provider Specialty Plastic and Reconstructive Surgery Referral Priority Urgent Referral Appointment Date 2021-03-23 General Notes Deedee Frost 03/02/2021 04:39:04 PM >Pt has an MRI ordered, pending auth/scheduling to eval NAC response. Has a right breast and right axilla ultrasound also ordered, scheduled for 03/13. Pending surgery. Thank you!Deedee Frost 03/02/2021 04:39:23 PM >Referral faxed. VITAL SIGNS Weight 120 lbs Feb, Weight-kg 54.43 kg Feb, Height 66 in Feb, BMI 19.37 kg/m2 Feb, Heart Rate 118 /min Feb, Respiratory Rate 18 /min Feb, Temperature 98.1 degrees Fahrenheit Feb, Oximetry 99 Feb, Blood pressure systolic 112 mm Hg Feb, Blood pressure diastolic 74 mm Hg Feb, MEDICATIONS Medication SIG (Take, Route, Frequency, Duration) Notes Start Da te End Date Status Ventolin HFA 108 (90 Base) MCG/ACT 1 puff as needed In halation every 4 hrs for 30 Days Dec, Active Metamucil 48.57 % as directed Orally Daily for 30 Days Dec, Active Paragard Intrauterine Copper - as directed Intrauterine Active PROCEDURES No Information RESULTS No Results REASON FOR VISIT Due to finish NAC 02/26/21 MEDICAL (GENERAL) HISTORY Type Description Date Medical History asthma Medical History environmental/seasonal allergies Medical History 2020 - 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 Surgical History Right Breast Biopsy with Rig ht axillary lymph node biopsy - Infiltrating ductal carcinoma 07/26/20 Hospitalization History childbirth Hospitalization History asthma attack in 1992 during 1992 Goals Section No Information Health Concerns No Information MEDICAL EQUIPMENT No Information MENTAL STATUS No Information FUNCTIONAL STATUS No Information ASSESSMENTS Encounter Date Diagnosis Assessment Notes Treatment Notes Treatm ent Clinical Notes Feb, Malignant neoplasm of right female breast, unspecified estrogen receptor status, unspecified site of breast (ICD-10 - C50.911) RIGHT BREAST CANCER 6:00 and 3:00 6:00 IDC GRADE 3 ER 90% PR85% HER2 Negative m cT 2(4.4 sono 6:00 and 3:00 DCIS) cN1(+bx) cM0 ANATOMOCAL STAGE 2b CLINICAL PROGNOSTIC STAGE :2b * of note 6:00 mass clip slid out of mass and is anterior and medial 3:00 DCIS GRADE 2 ER 90-100% IN 80-90% GENETICS: declined s/p NAC (ACT), completed 02/26/2021 PLAN: 1. Will need MRI and ultrasound R breast 6:00,3:00 and R axilla to assess response to chemo, will call with result 2. Planning for mastectomy with SLNBx and right target axillary dissection with intraop wire placement and AXILLARY FROZEN SECTION, may need completion ALND at the same procedure in frozen + 3. Referral to Radiation Oncology postop since N1 disease 4. Preop testing/ medical clearance will need to be obtained prior to surgery 5. Referral to Dr. Shane for reconstructive options as patient is not sure of recon options We discussed that now she has completed chemotherapy, we will need to do a follow-up MRI to assess the response to treatment. I would also like to get a formal ultrasound of both right breast areas and the axilla to assess the lesions as well. I will call her with the results. Patient is thinking about mastectomy. She states she would also like the port removed from the left chest during her surgery if it is possible. I informed her this would need to be approved by Medical Oncology. She is seeing them March 19 and I encouraged her to inquire with them at that time. We also briefly discussed reconstruction options for a mastectomy. Patient education material was given today and I will place a referral to Dr. Shane for her to discuss reconstructive options further. I explained that we will plan for a mastectomy with SLNBx and targeted axillary dissection with intraop wire placement and a frozen section. If frozen section is positive for viable cancer cells then patient will need completion axillary lymph node dissection at index surgery. We discussed the procedure and the possible risks and complications. I explained that this can include bleeding, infection, and injury to surrounding structures like the skin, nipple, muscle, lung, nerves especially the long thoracic nerve and thoracodorsal nerve, numbness to the skin and/or nipple, scarring, bruising, hematoma, seromas, flap and/or nipple necrosis, lymphedema, nerve injury causing weakness in motor function of the upper extremity or scapula, contour deformity, poor cosmetic outcomes and need for additional surgeries. We will follow up on the imaging ans start setting up the preop clearance. All questions were answered. Patient agrees with the plan. ADDENDUM 03/05/21 Medical Oncologist would prefer to keep the port-a-cath in place for about 1 year post chemo. Feb, Breast mass, right (ICD-10 - N63.10) s/p US guided bx of right 3:00 lesion done 08/16/20 with me See above Feb, Lymph node enlargement (ICD-10 - R59.9) s/p US guided R LN bx 07/26/20 done by me Pathology :+ malignant cells We had a detailed discussion regarding management of the axillary metastases- see plan above Feb, Genetic screening (ICD-10 - Z13.79) Patient participated in our cancer screening program and she was identified as a person who may be eligible for genetic testing due to her family history. Patient previously delined genetic testing at this time. She will let me know if she changes her mind. Feb, Asthma, unspecified asthma s everity, unspecified whether complicated, unspecified whether persistent (ICD-10 - J45.909) Patient reported previously poorly controlled asthma with occasionally having to use a rescue inhaler a couple of times a day. Referral sent to establish PCP. Patient established care with PCP and is followed for Asthma now. Feb, Alcohol use (ICD-10 - Z72.89) Patient stopped the alcohol intake after out initial discussion. Feb, Other I, Dr. El wynn, reviewed the medical note prepared by the scribe and confirm the findings and the discussed plan. PLAN OF TREATMENT Treatment Notes Assessment Notes Clinical Notes Malignant neoplasm of right female breas t, unspecified estrogen receptor status, unspecified site of breast RIGHT BREAST CANCER 6:00 and 3:006:00 ID C GRADE 3ER 90% PR85% HER2 Negativem cT 2(4.4 sono 6:00 and 3:00 DCIS) cN1(+bx) [id number] STAGE 2bCLINICAL PROGNOSTIC STAGE :2b* of note 6:00 mass clip slid out of mass and is anterior and medial3:00 DCIS GRADE 2ER 90-100% IN 80- 90%GENETICS: declineds/p NAC (ACT), completed 02/26/2021LAN:1. Will need MRI and ultrasound R breast 6:00,3:00 and R axilla to assess response to chemo, will call with result2. Planning for mastectomy with SLNBx and right target axillary dissection with intraop wire placement and AXILLARY FROZEN SECTION, may need completion ALND at the same procedure in frozen +3. Referral to Radiation Oncology postop since N1 disease4. Preop testing/ medical clearance will need to be obtained prior to surgery5. Referral to Dr. Shane for reconstructive options as patient is not sure of recon optionsWe discussed that now she has completed chemotherapy, we will need to do a follow-up MRI to assess the response to treatment. I would also like to get a formal ultrasound of both right breast areas and the axilla to assess the lesions as well. I will call her with the results.Patient is thinking about mastectomy. She states she would also like the port removed from the left chest during her surgery if it is possible. I informed her this would need to be approved by Medical Oncology. She is seeing them March 19 and I encouraged her to inquire with them at that time.We also briefly discussed reconstruction options for a mastectomy. Patient education material was given today and I will place a referral to Dr. Shane for her to discuss reconstructive options further.I explained that we will plan for a mastectomy with SLNBx and targeted axillary dissection with intraop wire placement and a frozen section. If frozen section is positive for viable cancer cells then patient will need completion axillary lymph node dissection at index surgery.We discussed the procedure and the possible risks and complications. I explained that this can include bleeding, infection, and injury to surrounding structures like the skin, nipple, muscle, lung, nerves especially the long thoracic nerve and thoracodorsal nerve, numbness to the skin and/or nipple, scarring, bruising, hematoma, seromas, flap and/or nipple necrosis, lymphedema, nerve injury causing weakness in motor function of the upper extremity or scapula, contour deformity, poor cosmetic outcomes and need for additional surgeries.We will follow up on the imaging ans start setting up the preop clearance.All questions were answered. Patient agrees with the plan.ADDENDUM 03/05/21Medical Oncologist would prefer to keep the port-a-cath in place for about 1 year post chemo. Breast mass, right s/p US guided bx of right 3: 00 lesion done 08/16/20 with meSee above Lymph node enlargement s/p US guided R LN bx 1 done by mePathology :+ malignant cellsWe had a detailed discussion regarding management of the axillary metastases- see plan above Genetic screening Patient participated in our cancer screening program and she was identified as a person who may be eligible for genetic testing due to her family history.Patient previously delined genetic testing at this time. She will let me know if she changes her mind. Asthma, unspecified asthma severity, uns pecified whether complicated, unspecified whether persistent Patient reported previously poorly contr olled asthma with occasionally having to use a rescue inhaler a couple of times a day.Referral sent to establish PCP. Patient established care with PCP and is followed for Asthma now. Alcohol use Patient stopped the alcohol intake after out initial discussion. Treatment Notes Test Name Order Date MRI Breast Bilat with and w/o Cont 2021-03-02 [facility] EXTREMITY NON VASC LIMITED 2021-03-02 [facility] Breast U/S Unilateral Limited 2021-03-02 Referrals Referral Date Details 2021-03-23 2021-03-23, Right breast can cer, planning for mastectomy. Please discuss reconstructive options., Samina Shane Next Appt Details Provider Name:Jose Irby, 2021-04-05 0 9:45:00 AM, [address] [place] [address], , [place], [address], Provider Name:Mary Williamson, -12 11:00:00 AM, [address] [place] [address], , [place], [address], Insurance Providers Payer Name Payer Address Payer Phone Insured Name Patient Relati onship to Insured Coverage Start Date Coverage End Date [facility] [id number] [facility] [id number] ROEL GRISSOM self
--- OUTSIDE RECORDS SUMMARY | 2021-04-10 06:28 | CCD ---
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 Active confirmed 914410687 Problem Asthma, mild intermittent J45.20 Active confirmed 755383496 Problem Malignant neoplasm of right female breast, unspecified estrogen receptor status, unspecified site of breast C50.911 Active confirmed 267028923 Problem Malignant neoplasm of unspecified site of unspec ified female breast C50.919 Active confirmed 600655229 Problem Breast cancer C50.919 Active confirmed 79835 7009 Problem Constipation K59.00 Active confirmed 6278640 8 ALLERGIES No Known Allergies ENCOUNTERS from 1972 to 2021-03-06 Encounter Location Date Provider Diagnosis [facility] [address] [place] [address] [place] [address] Feb, Gretel Kennycollette IMMUNIZATIONS No Information SOCIAL HISTORY Tobacco Use: Social History Observation Description Date Details (start date - stop date) Never Smoker Sex Assigned At : Social History Observation Description Sex Assigned At Unknown Education: Question Answer Notes Level of Education: College Language: Question Answer Notes Languages spoken: Haitian Worship: Question Answer Notes Worship 21 Yarsanism Sexual Hx: Question Answer Notes Had sex [...] you a: never smoker REASON FOR REFERRAL No Information VITAL SIGNS No information MEDICATIONS Medication SIG (Take, Route, Frequency, Duration) Notes Start Da te End Date Status Ventolin HFA 108 (90 Base) MCG/ACT 1 puff as needed In halation every 4 hrs for 30 Days Dec, Active Metamucil 48.57 % as directed Orally Daily for 30 Days Dec, Active Paragard Intrauterine Copper - as directed Intrauterine Active PROCEDURES No Information RESULTS No Results REASON FOR VISIT PREOP CLEARANCE FOR BREAST SURGERY MEDICAL (GENERAL) HISTORY Type Description Date Medical [...] No Information FUNCTIONAL STATUS No Information ASSESSMENTS No Information PLAN OF TREATMENT Next Appt Details Provider Name:Jose Irby, 2021-04-05 0 9:45:00 AM, [address] [place] [address] , [place], [address], Provider Name:Mary Williamson, 12 11:00:00 AM, [address] [place] [address] , [place], [address], Insurance Providers Payer Name Payer Address Payer Phone Insured Name Patient Relati onship to Insured Coverage Start Date Coverage End Date BCBS OF [facility] [id number] [facility] [id number] ROEL GRISSOM self
--- OUTSIDE RECORDS SUMMARY | 2021-04-10 06:28 | CCD ---
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 Active confirmed 020269842 Problem Asthma, mild intermittent J45.20 Active confirmed 755217755 Problem Macrocytosis D75.89 Active confirmed 6884390 00 Problem Allergic rhinitis J30.9 Active confirmed 61 366850 Problem Constipation K59.00 Active confirmed 8178056 8 Problem Iron overload E83.19 Active confirmed 901861 08 Problem Borderline hypertension R03.0 Active confirmed 349622484 Problem Hot flashes N95.1 Active confirmed 90957770 8 ALLERGIES No Known Allergies ENCOUNTERS from 1972 to 2021-04-05 Encounter Location Date Provider Diagnosis [address] [phone] [place] [address] Mar, Jose Irby Asthma, mild intermittent J4 5.20 ; Preoperative clearance Z01.818 ; 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 ; Constipation K59.00 ; Macrocytosis D75.89 ; Iron overload E83.19 ; Borderline hypertension R03.0 ; Allergic rhinitis J30.9 and Hot flashes N95.1 IMMUNIZATIONS No Information SOCIAL HISTORY Tobacco Use: Social History Observation Description Date Details (start date - stop date) Never Smoker Sex Assigned At : Social History Observation Description Sex Assigned At Unknown Education: Question Answer Notes Level of Education: College Language: Question Answer Notes Languages spoken: Kyrgyz Sikhism: Question Answer Notes Sikhism 21 Rastafarian Sexual Hx: Question Answer Notes Had sex [...] REASON FOR REFERRAL No Information VITAL SIGNS Weight 123.8 lbs Mar, Weight-kg 56.16 kg Mar, Height 66 in Mar, BMI 19.98 kg/m2 Mar, Heart Rate 120 /min Mar, Respiratory Rate 18 /min Mar, Temperature 97.6 degrees Fahrenheit Mar, Oximetry 97% Mar, Blood pressure systolic 140 mm Hg Mar, Blood pressure diastolic 82 mm Hg Mar, MEDICATIONS Medication SIG (Take, Route, Frequency, Duration) Notes Start Da te End Date Status Lidocaine-Prilocaine 2.5-2.5 % apply entire tube to ri ght nipple and surrounding tissue 2 hours prior coming to hospital for surgery. Cover with plastic Externally once for 1 day Mar, Active Paragard Intrauterine Copper - as directed Intrauterine Active Metamucil 48.57 % as directed Orally Daily Dec, Active Ventolin HFA 108 (90 Base) MCG/ACT 1 puff as needed In halation every 4 hrs for 90 day(s) Dec, Active Montelukast Sodium 10 MG 1 tablet Orally at bedtime for 90 day(s ) Mar, Active PROCEDURES No Information RESULTS No Results REASON FOR VISIT Pre op clearance - for Right Lumpectomy w/ fetnal ly,pnode biopsy- [facility]-04/10/21- DR. Lindsey-General, [place] @ [phone] fax # [phone] DX: C50.911 MEDICAL (GENERAL) HISTORY Type Description Date Medical History asthma, mild persistent Medical History AR Medical History stage IIB, N1 MX R breast ce ntral invasive ductal c large R axillary LN met, E/P/H+ sp [id number] 02/2021 Medical History hypertension, essential-09/04/20 TTE-[facility] Surgical History Right Breast Biopsy with Rig ht axillary lymph node biopsy - Infiltrating ductal carcinoma 07/26/20 Hospitalization History childbirth Hospitalization History asthma attack in 1992 during pregnan cy 1992 Goals Section No Information Health Concerns No Information MEDICAL EQUIPMENT No Information MENTAL STATUS No Information FUNCTIONAL STATUS No Information ASSESSMENTS Encounter Date Diagnosis Assessment Notes Treatment Notes Treatm ent Clinical Notes Mar, Asthma, mild intermittent (ICD-10 - J45.20) C: PFM, ICS 04/05/21 given using alb MDI 1-2x daily for ~4W; retry monte 10 QHS (03/19/21 had used x 4D c improved wheeze/decreased alb use but stopped 2 positional dizziness) Mar, Preoperative clearance (ICD-10 - Z01.818) On 03/19/21 the patient had a stable CBCD and CMP. On 04/05/21 the patient's EKG revealed normal sinus rhythm at 77 beats per minute c iRBBB, no hypertrophy, normal axis and no repolarization abnormality. On the AM of the surgery, the patient will take 2 puffs albuterol MDI. The patient will hold aspirin and ANY NSAID for five (5) days prior to surgery. The patient is currently medically optimized for the above surgery. By the modified RCRI, the patient's 30 day MACE risk is 4%. The patient wishes to assume this risk and proceed with the above surgery. Mar, Ductal carcinoma of right breast (ICD-10 - C50.9 11) follows with [facility] stage IIB, N1 MX R breast central invasive ductal c large R axillary LN met, E/P/H+ sp [id number] 02/202102/26/21 finished 20W AC P/T Mar, Constipation (ICD-10 - K59.00) Mar, Macrocytosis (ICD-10 - D75.89) 08/03/20 12.2, 100 (prior to chemorx)-but admits 4-5 beers A/U Mar, Iron overload (ICD-10 - E83.19) Mar, Borderline hypertension (ICD-10 - R03.0) Mar, Allergic rhinitis (ICD-10 - J30.9) monte as per asthma Mar, Hot flashes (ICD-10 - N95.1) C: venla PLAN OF TREATMENT Medication Medication Name Sig Start Date Stop Date Metamucil 48.57 % as directed Orally Daily Dec, Ventolin HFA 108 (90 Base) MCG/ACT 1 puff as needed In halation every 4 hrs for 90 day(s) Dec, Montelukast Sodium 10 MG 1 tablet Orally at bedtime for 90 day(s ) Mar, Treatment Notes Assessment Notes Clinical Notes Asthma, mild intermittent C: PFM, ICS given using alb MDI 1-2x daily for ~4W; retry monte 10 QHS (03/19/21 had used x 4D c improved wheeze/decreased alb use but stopped 2 positional dizziness) Preoperative clearance On 03/19/21 the pa shannan had a stable CBCD and CMP. On 04/05/21 the patient's EKG revealed normal sinus rhythm at 77 beats per minute c iRBBB, no hypertrophy, normal axis and no repolarization abnormality. On the AM of the surgery, the patient will take 2 puffs albuterol MDI. The patient will hold aspirin and ANY NSAID for five (5) days prior to surgery. The patient is currently medically optimized for the above surgery. By the modified RCRI, the patient's 30 day MACE risk is 4%. The patient wishes to assume this risk and proceed with the above surgery. Ductal carcinoma of right breast [facility], N1 MX R breast central invasive ductal c large R axillary LN met, E/P/H+ sp [id number] finished 20W AC P/T Macrocytosis 08/03/20 12.2, 100 (p rior to chemorx)-but admits 4-5 beers A/U Allergic rhinitis monte as per asthma Hot flashes C: venla Treatment Notes Test Name Order Date Immunotyping Serum 2021-04-05 RBC FOLATE PROFILE 2021-04-05 FREE T4 & TSH PANEL 2021-04-05 SERUM PROTEIN ELECTROPHORESIS (SPEP) 2021-04-05 VITAMIN B12 LEVEL 2021-04-05 C REACTIVE PROTEIN QUANTITATIV (At [facility]) 2021-04-05 Hereditary Hemochromatosis (Hemoch) 2021-04-05 FERRITIN 2021-04-05 ERYTHROCYTE SEDIMENTATION RATE 2021-04-05 TOTAL IRON BINDING CAPACIT 2021-04-05 LIPID PANEL (CARDIAC RISK) 2021-04-05 DONG Fibrosure [id number] 2021-04-05 HAPTOGLOBIN 2021-04-05 ELECTROCARDIOGRAM, COMPLETE EKG 2021-04-05 Next Appt Details , BW NOW Reason: Provider Name:Gretel Lindsey, 05-04-26 11:15:00 AM, [address] [place] [address], , [place], [address], Provider Name:Gretel Lindsey, 06-05-10 07:30:00 AM, [address] [place] [address], , [place], [address], Provider Name:Mary Williamson, 12-25 11:00:00 AM, [address] [place] [address], , [place], [address], Insurance Providers Payer Name Payer Address Payer Phone Insured Name Patient Relati onship to Insured Coverage Start Date Coverage End Date [id number] [facility] [id number] [address] self
--- OUTSIDE RECORDS SUMMARY | 2021-04-10 06:28 | CCD | Continuity of Care Document ---
Author Author Elizabeth GATICA DO Organization Unknown Address [address] [place] [address] Phone [phone] Care Team Providers Care Cherry Dipper Name Role Phone Gretel Lindsey D.O. AUTM Dolly Williamson AUTM [phone] Problems Active Problems Provider Date Allergic asthma without status asthmaticus Samina Gatica DO Onset: 03/23/2021 Social History Type Date Description Comments Sex Female ETOH Use Occasionally consumes alcohol Tobacco Use Start: Unknown Denies Smoking Allergies and adverse reactions Description No Known Drug Allergies Medications Active Medications SIG Qnty Indications Ordering Provide r Date Ventolin HFA 108(90Base) mcg/Act A erosol 2 puffs qid/prn Unknown Immunizations Description No Information Available Vital Signs Date Vital Result Comment 03/23/2021 9:05am BP Systolic 128 mmHg BP Diastolic 70 mmHg Heart Rate 74 /min Respiratory Rate 14 /min Body Temperature 97.8 F Height 65 inches 5'5" Weight 124.00 lb BMI (Body Mass Index) 20.6 kg/m2 [place] Body Weight 125 lb Weight 56.246 kg BSA (Body Surface Area) 1.61 m2 Results Description No Information Available Procedures Description No Information Available Medical Devices Description No Information Available Encounters Description No Information Available Assessments Description No Information Available Plan of Treatment No Information Available Functional Status Description No Information Available Mental Status Description No Information Available Referrals Description No Information Available
--- OUTSIDE RECORDS SUMMARY | 2021-04-10 06:28 | CCD ---
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 Active confirmed 327342379 Problem Asthma, mild intermittent J45.20 Active confirmed 385365265 Problem Macrocytosis D75.89 Active confirmed 5421344 00 Problem Allergic rhinitis J30.9 Active confirmed 61 682624 Problem Constipation K59.00 Active confirmed 3655180 8 Problem Iron overload E83.19 Active confirmed 143796 08 Problem Borderline hypertension R03.0 Active confirmed 249190204 Problem Hot flashes N95.1 Active confirmed 27991665 8 ALLERGIES No Known Allergies ENCOUNTERS from 1972 to 2021-04-05 Encounter Location Date Provider Diagnosis [address] [phone] [place] [address] Mar, Jose Irby IMMUNIZATIONS No Information SOCIAL HISTORY Tobacco Use: Social History Observation Description Date Details (start date - stop date) Never Smoker Sex Assigned At : Social History Observation Description Sex Assigned At Unknown Education: Question Answer Notes Level of Education: College Language: Question Answer Notes Languages spoken: Slovak Latter-Day: Question Answer Notes Latter-Day 21 Alevism Sexual Hx: Question Answer Notes Had sex [...] Information RESULTS No Results REASON FOR VISIT Port removal? MEDICAL (GENERAL) HISTORY Type Description Date Medical History asthma, mild persistent Medical History [place] Medical History stage IIB, N1 MX R breast ce ntral invasive ductal c large R axillary LN met, E/P/H+ sp [id number] 02/2021 Medical History hypertension, essential-09/04/20 TTE-[place] Surgical History Right Breast Biopsy with Rig ht axillary lymph node biopsy - Infiltrating ductal carcinoma 07/26/20 Hospitalization History childbirth Hospitalization History asthma attack in 1992 during pregnan cy 1992 Goals Section No Information Health Concerns No Information MEDICAL EQUIPMENT No Information MENTAL STATUS No Information FUNCTIONAL STATUS No Information ASSESSMENTS No Information PLAN OF TREATMENT Medication Medication Name Sig Start Date Stop Date Metamucil 48.57 % as directed Orally Daily Dec, Ventolin HFA 108 (90 Base) MCG/ACT 1 puff as needed In halation every 4 hrs for 90 day(s) Dec, Montelukast Sodium 10 MG 1 tablet Orally at bedtime for 90 day(s ) Mar, Next Appt Details Provider Name:Gretel Lindsey, 20 21-10- 11:15:00 AM, [address] [facility], , [place], [address], Provider Name:Gretel Lindsey, 06-05-10 07:30:00 AM, [address] [place] [address], , [place], [address], Provider Name:Mary Williamson, 12-25 11:00:00 AM, [address] [place] [address], , [place], [address], Insurance Providers Payer Name Payer Address Payer Phone Insured Name Patient Relati onship to Insured Coverage Start Date Coverage End Date [facility] [id number] [facility] [id number] [address] self
--- OUTSIDE RECORDS SUMMARY | 2021-04-10 06:28 | CCD ---
Author Author [facility] Organization [facility] Address Unknown Phone Unavailable Care Team Providers Care [place] Pilot Name Role Phone DOMBROWSKA, K MALLIKA DO Unavailable Unavailable DOMBROWSKA, K MALLIKA DO Unavailable Unavailable DOMBROWSKA, K MALLIKA DO Unavailable Unavailable DOMBROWSKA, K MALLIKA DO Unavailable Unavailable DOMBROWSKA, K MALLIKA DO Unavailable Unavailable DOMBROWSKA, K MALLIKA DO Unavailable Unavailable DOMBROWSKA, K MALLIKA DO Unavailable Unavailable DOMBROWSKA, K MALLIKA DO Unavailable Unavailable DOMBROWSKA, K MALLIKA DO Unavailable Unavailable DOMBROWSKA, K MALLIKA DO Unavailable Unavailable DOMBROWSKA, K MALLIKA DO Unavailable Unavailable DOMBROWSKA, K MALLIKA DO Unavailable Unavailable DOMBROWSKA, K MALLIKA DO Unavailable Unavailable DOMBROWSKA, K MALLIKA DO Unavailable Unavailable DOMBROWSKA, K MALLIKA DO Unavailable Unavailable DOMBROWSKA, K MALLIKA DO Unavailable Unavailable DOMBROWSKA, K MALLIKA DO Unavailable Unavailable DOMBROWSKA, K MALLIKA DO Unavailable Unavailable DOMBROWSKA, K MALLIKA DO Unavailable Unavailable DOMBROWSKA, K MALLIKA DO Unavailable Unavailable DOMBROWSKA, K MALLIKA DO Unavailable Unavailable DOMBROWSKA, K MALLIKA DO Unavailable Unavailable Claritza, G Bethany Unavailable Unavailable EN, E CHRIS DO Unavailable Unavailable EN, E CHRIS DO Unavailable Unavailable EN, E CHRIS DO Unavailable Unavailable EN, E CHRIS DO Unavailable Unavailable EN, E CHRIS DO Unavailable Unavailable EN, E CHRIS DO Unavailable Unavailable EN, E CHRIS DO Unavailable Unavailable EN, E CHRIS DO Unavailable Unavailable EN, E CHRIS DO Unavailable Unavailable EN, E CHRIS DO Unavailable Unavailable EN, E CHRIS DO Unavailable Unavailable EN, E CHRIS DO Unavailable Unavailable EN, E CHRIS DO Unavailable Unavailable EN, E CHRIS DO Unavailable Unavailable EN, E CHRIS DO Unavailable Unavailable EN, E CHRIS DO Unavailable Unavailable EN, E CHRIS DO Unavailable Unavailable EN, E CHRIS DO Unavailable Unavailable EN, E CHRIS DO Unavailable Unavailable EN, E CHRIS DO Unavailable Unavailable EN, E CHRIS DO Unavailable Unavailable EN, E CHRIS DO Unavailable Unavailable Re-disclosure Warning The records that you are about to access may contain information from federally-assisted alcohol or drug abuse programs. If such information is present, then the following federally mandated warning applies: This information has been disclosed to you from records protected by federal confidentiality rules (42 CFR part 2). The federal rules prohibit you from making any further disclosure of this information unless further disclosure is expressly permitted by the written consent of the person to whom it pertains or as otherwise permitted by 42 CFR part 2. A general authorization for the release of medical or other information is NOT sufficient for this purpose. The Federal rules restrict any use of the information to criminally investigate or prosecute any alcohol or drug abuse patient.The records that you are about to access may contain highly sensitive health information, the redisclosure of which is protected by Article 27-F of the [facility] Public Health law. If you continue you may have access to information: Regarding HIV / AIDS; Provided by facilities licensed or operated by the [facility] Office of Mental Health; or Provided by the [facility] Office for People With Developmental Disabilities. If such information is present, then the following [facility] mandated warning applies: This information has been disclosed to you from confidential records which are protected by state law. State law prohibits you from making any further disclosure of this information without the specific written consent of the person to whom it pertains, or as otherwise permitted by law. Any unauthorized further disclosure in violation of state law may result in a fine or custodial sentence or both. A general authorization for the release of medical or other information is NOT sufficient authorization for further disc losure. Encounters Encounter Providers Location Date Indications Data Source(s ) [place] [address] [facility] [address] 04/05/2021 12:00:00 AM EDT eCW1 ([facility]) [place] [address] [facility] [address] 04/05/2021 12:00:00 AM EDT eCW1 ([facility]) [place] [address] [facility] [address] 03/26/2021 12:00:00 AM EDT eCW1 ([facility]) Outpatient Attender: CHRIS Piedra/Lily/Duke/Cameron shaw 03/23/2021 09:15:00 AM EDT MEDENT ([facility] [place] [address] [facility] [address] 03/05/2021 12:00:00 AM EDT eCW1 ([facility]) [place] [address] [facility] [address] 03/02/2021 12:00:00 AM EDT eCW1 ([facility]) [place] [address] [facility] [address] 12/21/2020 12:00:00 AM EDT eCW1 ([facility]) [place] [address] [facility] [address] 12/20/2020 12:00:00 AM EDT eCW1 ([facility]) [place] [address] [facility] [address] 08/25/2020 12:00:00 AM EST eCW1 ([facility]) [place] [address] [facility] [address] 08/24/2020 12:00:00 AM EST eCW1 ([facility]) Outpatient Admitter: MALLIKA Joy: TRUDY FREIRE DO 08/21/2020 12:00:00 AM EST Malignant neoplasm of unspecified site o f unspecified female [facility] Malignant neoplasm of unspecified site o f unspecified female breast Outpatient [address] [facility] [address] 08/21/2020 12:00:00 AM EST eCW1 ([facility]) [place] [address] [facility] [address] 08/17/2020 12:00:00 AM EST eCW1 ([facility]) [place] [address] [facility] [address] 08/10/2020 12:00:00 AM EST eCW1 ([facility]) [place] [address] [facility] [address] 08/04/2020 12:00:00 AM EST eCW1 ([facility]) [place] [address] [facility] [address] 08/02/2020 12:00:00 AM EST eCW1 ([facility]) Outpatient [address] [facility] [address] 07/31/2020 12:00:00 AM EST eCW1 ([facility]) Outpatient Admitter: Bethany Bacaer: Bethany Jerry 07/28/2020 12:00:00 AM EST - 07/28/2020 11:59:00 PM EST Malignant neoplasm of unspecified site o f unspecified [facility] Malignant neoplasm of unspecified site o f unspecified female breast Outpatient [address] [facility] [address] 07/26/2020 12:00:00 AM EST eCW1 ([facility]) Medications Medication Brand Name Start Date Product Form Dose Route Admi nistrative Instructions Pharmacy Instructions Status Indications Reaction Description Data Source(s) montelukast 10 MG Oral Tablet Montelukast Sodium 10 MG Pérez lukast Sodium 10 MG 04/05/2021 12:00:00 AM EDT 1.0 {tablet} active Montelukast Sodium 10 MG eCW1 ([facility]cludes [facility]) montelukast 10 MG Oral Tablet Montelukast Sodium 10 MG Pérez lukast Sodium 10 MG 04/05/2021 12:00:00 AM EDT 1.0 {tablet} active Montelukast Sodium 10 MG eCW1 ([facility] Includes [facility]) Lidocaine 25 MG/ML / Prilocaine 25 MG/ML Topical Cream Lidocaine-Prilocaine 2.5- 2.5 % Lidocaine-Prilocaine 2.5-2.5 % 03/23/2021 12:00:00 AM EDT active Lidocaine-Prilocaine 2.5-2.5 % e CW1 (Count Includes [facility]) Lidocaine 25 MG/ML / Prilocaine 25 MG/ML Topical Cream Lidocaine-Prilocaine 2.5- 2.5 % Lidocaine-Prilocaine 2.5-2.5 % 03/23/2021 12:00:00 AM EDT active Lidocaine-Prilocaine 2.5-2.5 % e CW1 ([facility] Includes [facility]) Lidocaine 25 MG/ML / Prilocaine 25 MG/ML Topical Cream Lidocaine-Prilocaine 2.5- 2.5 % Lidocaine-Prilocaine 2.5-2.5 % 03/23/2021 12:00:00 AM EDT active Lidocaine-Prilocaine 2.5-2.5 % e CW1 (Count Includes [facility]) 200 ACTUAT Albuterol 0.09 MG/ACTUAT Mete red Dose Inhaler [Ventolin] Ventolin HFA 108 (90 Base) MCG/ACT Ventolin HFA 108 (90 Base) MCG/ACT 12/21/2020 12:00:00 AM EDT 1.0 {puff_as_needed} active Henry tolin HFA 108 (90 Base) MCG/ACT eCW1 (Count Includes [facility]) Metamucil 48.57 % UNK 12/21/2020 12:00:00 AM EDT active Metamucil 48.57 % eCW1 (Count Includes [facility]) 200 ACTUAT Albuterol 0.09 MG/ACTUAT Mete red Dose Inhaler [Ventolin] Ventolin HFA 108 (90 Base) MCG/ACT Ventolin HFA 108 (90 Base) MCG/ACT 12/21/2020 12:00:00 AM EDT 1.0 {puff_as_needed} active Henry tolin HFA 108 (90 Base) MCG/ACT eCW1 (Count Includes [facility]) 200 ACTUAT Albuterol 0.09 MG/ACTUAT Mete red Dose Inhaler [Ventolin] Ventolin HFA 108 (90 Base) MCG/ACT Ventolin HFA 108 (90 Base) MCG/ACT 12/21/2020 12:00:00 AM EDT 1.0 {puff_as_needed} active Henry tolin HFA 108 (90 Base) MCG/ACT eCW1 (Count Includes [facility]) 200 ACTUAT Albuterol 0.09 MG/ACTUAT Mete red Dose Inhaler [Ventolin] Ventolin HFA 108 (90 Base) MCG/ACT Ventolin HFA 108 (90 Base) MCG/ACT 12/21/2020 12:00:00 AM EDT 1.0 {puff_as_needed} active Henry tolin HFA 108 (90 Base) MCG/ACT eCW1 ([facility]cludes [facility]) Metamucil 48.57 % UNK 12/21/2020 12:00:00 AM EDT active Metamucil 48.57 % eCW1 (Count Includes [facility]) Metamucil 48.57 % UNK 12/21/2020 12:00:00 AM EDT active Metamucil 48.57 % eCW1 ([facility] Includes [facility]) 200 ACTUAT Albuterol 0.09 MG/ACTUAT Mete red Dose Inhaler [Ventolin] Ventolin HFA 108 (90 Base) MCG/ACT Ventolin HFA 108 (90 Base) MCG/ACT 12/21/2020 12:00:00 AM EDT 1.0 {puff_as_needed} active Henry tolin HFA 108 (90 Base) MCG/ACT eCW1 (Count Includes [facility]) 200 ACTUAT Albuterol 0.09 MG/ACTUAT Mete red Dose Inhaler [Ventolin] Ventolin HFA 108 (90 Base) MCG/ACT Ventolin HFA 108 (90 Base) MCG/ACT 12/21/2020 12:00:00 AM EDT 1.0 {puff_as_needed} active Henry tolin HFA 108 (90 Base) MCG/ACT eCW1 (Count Includes [facility]) 200 ACTUAT Albuterol 0.09 MG/ACTUAT Mete red Dose Inhaler [Ventolin] Ventolin HFA 108 (90 Base) MCG/ACT Ventolin HFA 108 (90 Base) MCG/ACT 12/21/2020 12:00:00 AM EDT 1.0 {puff_as_needed} active Henry tolin HFA 108 (90 Base) MCG/ACT eCW1 ([facility] Includes [facility]) Metamucil 48.57 % UNK 12/21/2020 12:00:00 AM EDT active Metamucil 48.57 % eCW1 ([facility] Includes [facility]) Metamucil 48.57 % UNK 12/21/2020 12:00:00 AM EDT active Metamucil 48.57 % eCW1 ([facility] Includes [facility]) Metamucil 48.57 % UNK 12/21/2020 12:00:00 AM EDT active Metamucil 48.57 % eCW1 (Count Includes [facility]) Metamucil 48.57 % UNK 12/21/2020 12:00:00 AM EDT active Metamucil 48.57 % eCW1 ([facility] Includes [facility]) Insurance Providers Payer name Policy type / Coverage type Policy ID Covered democrat ID Covered democrat's relationship to pedraza Policy Pedraza Plan Information EXCELLUS H [id number] Self [id number] [employer] 302/307 [id number] SP [id number] [place] 306/[id number] SP [id number] [place] 306/806 [id number] SP [id number] [place] 302/307 [id number] SP [id number] Problems, Conditions, and Diagnoses Code Display Name Description Problem Type Effective Dates Data Source(s) C50.919 Malignant neoplasm of unspecified site o f unspecified female breast Malignant neoplasm of unspecified site of unspecified female breast Diagnosis 08/21/2020 02:43:00 PM [facility] N95.1 Hot flashes Hot flashes Problem 04/05/2021 12:00:00 AM EDT eCW1 ([facility]) R03.0 [id number] Borderline hypertension Problem 04/05/2021 1 2:00:00 AM EDT eCW1 ([facility]cludes [facility]) E83.19 [id number] Iron overload Problem 04/05/2021 12:00:00 AM EDT eCW1 ([facility]cludes [facility]) J30.9 Allergic rhinitis Allergic rhinitis Problem 04/05/2021 12:00:00 AM EDT eCW1 ([facility]cludes [facility]) D75.89 [id number] Macrocytosis Problem 04/05/2021 12:00:00 AM EDT eCW1 ([facility]cludes [facility]) [id number] Allergic asthma without status asthmatic us Allergic asthma without status asthmaticus Problem 03/23/2021 12:00:00 AM EDT MEDENT ([facility] ) K59.00 Constipation Constipation Problem 12/21/2020 12:00:00 A M EDT eCW1 ([facility]) J45.20 Mild intermittent asthma Asthma, mild intermittent Pro blem 12/21/2020 12:00:00 AM EDT eCW1 ([facility]cludes [facility]) C50.911 [id number] Ductal carcinoma of right breast Problem 12/21/2020 12:00:00 AM EDT eCW1 ([facility] Includes [facility]) C50.919 [id number] Breast cancer Problem 07/31/2020 12:00:00 AM EST eCW1 ([facility]cludes [facility]) C50.919 [id number] Malignant neoplasm o f unspecified site of unspecified female breast Problem 07/31/2020 12:00:00 AM EST eCW1 (Replaced by [facility]) C50.911 [id number] Malignant neoplasm o f right female breast, unspecified estrogen receptor status, unspecified site of breast Problem 0 07/31/2020 12:00:00 AM EST eCW1 ([facility]) J45.909 [id number] Asthma, unspecified asthma severity, unspecified whether complicated, unspecified whether persistent Problem 07/26/2020 12:00 :00 AM EST eCW1 ([facility]cludes [facility]) Surgeries/Procedures Procedure Description Date Indications Data Source(s) OFFICE OUTPATIENT NEW 45 MINUTES 03/23/2021 12:00:00 A M IRASEMA TURK ([facility], ) Results ID Date Data Source [id number] 08/22/2020 02:18:00 PM [facility] Surgical Pathology ReportName: Radha GRISSOMMRN: [id number] Number: [id number] Date: 08/21/2020 00:00Received Date: 08/21/2020 14:45Physician(s): MALLIKA FREIRE,DO JERRY,BETHANY Prasad,MDSpecimen(s) ReceivedA: Material received for consultation, [place], [place] S[address]Elinical HistoryPlease do ER and SD testing. Outside diagnosis of "Ductal carcinoma insitu, intermediate grade".DiagnosisIMMUNOHISTOCHEMISTRY, RIGHT BREAST, 3:00, BIOPSY ([id number]; 08/16/20): ESTROGEN RECEPTORS: Positive (moderate to strong intensity in 91-100% oftumor cells).PROGESTERONE RECEPTORS: Positive (moderate to strong intensity in 81-90%of tumor cells).Electronically Signed By Justice Mclaughlin MD;, Attending Pathologist08/22/2020 14:18:56 Unless 'gross-only' is specified, the final diagnosis is based on amicroscopic examination of congressional representative sections of tissue.Gross DescriptionReceived from [facility] in [place], [place] is one paraffinblock labeled [id number] x3 with the corresponding pathology report./jrsThis report may include one or more immunohistochemical stain results thatuse analyte specific reagents. All positive and negative controls havebeen reviewed by the attending pathologist and are satisfactory. The testswere developed and their performance characteristics determined by [facility] Pathology department. They have not been cleared or approved by the USFood and Drug Administration. The FDA has determined that such clearanceor approval is not necessary. Name Value Range Interpretation Code Description Data Lynn rce(s) Supporting Document(s) ID Date Data Source [id number] 08/02/2020 07:33:00 PM [facility] Surgical Pathology Report See Addendum B elowName: ROEL GRISSOMMRN: [id number] Number: [id number] Date: 07/28/2020 00:00Received Date: 07/31/2020 12:14Physician(s): BETHANY JERRY MD VYAS, SHIKHAR G,MDSpecimen(s) ReceivedA: Material received for consultation, [facility], S21- [address]Clinical HistoryPlease do ER, SD, HER2 w/reflex to FISH on Part B, lymph node. Rightaxillary lymph node biopsy ([id number], part B) with outside diagnosis of"metastatic carcinoma, consistent with metastasis from breast primary". Concurrent right breast biopsy ([id number], part A) with outside diagnosisof "infiltrating ductal carcinoma, grade 3".Addendum 08/10/2020 RESULTS OF MOLECULAR ASSAYS: Test name: HER2 by FISHTest interpretation:NEGATIVE FOR HER2 (ERBB2) GENE AMPLIFICATION (see [id number] for fullreport)/jrs Addendum Electronically Signed By: Justice Mclaughlin MD; 08/10/2020 DiagnosisIMMUNOHISTOCHEMISTRY, RIGHT AXILLARY LYMPH NODE, BIOPSY ([id number] 1226, PART B;07/26/20): ESTROGEN RECEPTORS: Positive (moderate intensity in 90% of tumor cells).PROGESTERONE RECEPTORS: Positive (moderate intensity in 85% of tumorcells).HER2: Equivocal (2+); HER2 FISH pending (addendum report will follow).Electronically Signed By Justice Mclaughlin MD;, Attending Pathologist08/02/2020 19:33:37 Unless 'gross-only' is specified, the final diagnosis is based on amicroscopic examination of congressional representative sections of tissue.Gross DescriptionReceived from [facility] in [place], [place], is one paraffinblock, labeled [id number] (B), with the corresponding pathology report. This report may include one or more immunohistochemical stain results thatuse analyte specific reagents. All positive and negative controls havebeen reviewed by the attending pathologist and are satisfactory. The testswere developed and their performance characteristics determined by [facility] Pathology department. They have not been cleared or approved by the USFood and Drug Admin istration. The FDA has determined that such clearanceor approval is not necessary. Name Value Range Interpretation Code Description Data Lynn rce(s) Supporting Document(s) ID Date Data Source [id number] 08/08/2020 09:47:00 PM [facility] Anatomic Molecular Pathology ReportName: ROEL GRISSOMMRN: [id number] Number: [id number] Date: 07/28/2020 00:00Received Date: 08/03/2020 14:55Physician(s): BETHANY JERRY MD VYAS, SHIKHAR G,MDCopy To:[facility]imen(s) ReceivedA: Material received for consultation, Formalin Block [id number] ([id number] from [facility] in [place], [place] Pxi6Uia by FISHDiagnosisTEST:HER2 (ERBB2) by FISH (Fluorescence in situ Hybridization).INITIAL PROBE RESULT:RATIO of HER2 (ERBB2) to CEP17 (D17Z1) is 1.5Average HER2 (ERBB2) copy number per cell is 4.0International System for Cytogenetic Nomenclature: nuc melania(D17Z1,HER2)x2~7 [40]FINAL IHC-GUIDED PROBE RESULT:RATIO of HER2 (ERBB2) to CEP17 (D17Z1) is 1.1Average HER2 (ERBB2) copy number per cell is 5.2International System for Cytogenetic Nomenclature: nuc melania(D17Z1,HER2)x3~9 [20]INTERPRETATION:NEGATIVE FOR HER2 (ERBB2) GENE AMPLIFICATION.fBased on IHC-guided probe counts, the average of HER2 and CEP17 copies percell in breast cancer is 5.2 and 4.4 respectively, which makes a ratio ofHER2 to CEP17 1.1. Based on current ASCO/CAP guideline recommendations forHER2 testing in breast cancer, dual-probe in situ hybridization (MELANIA)results in Group 4 and with concurrent IHC 2+ is interpreted as ISHnegative. This result is an adjunct to other clinical and pathologicinformation for prediction of therapeutic response. /ldElectronically Signed By Deon Rodríguez M.D. Attending Pathologist 08/08/2020 21:47:30Reported at [address] [place] [address]. Gross DescriptionMETHODOLOGY:Interphase FISH is performed on paraffin embedded breast cancer utilizingthe BioPetroClean HER2 DNA Probe Kit. This is a combination, direct label,dual color detection system utilizing 2 probes: 1) HER2 (17q11.2 - q12,190 kb, encompassing the gene) with SpectrumOrange label, and 2) CEP 17(17p11.1- q11.1, chromosome 17 centromere) with SpectrumGreen label. Tumorcells with no HER2 amplification have, on average, 2 orange and 2 greensignals. Amplification will result in multiple copies of the HER2 gene,expressed as multiple orange signals. Hybridization is carried out as perthe stated protocol with no significant background or random probehyb ridization detected. Cells are counterstained with DAPI. A total of 40interphase nuclei from a region of invasive or metastatic tumor areexamined by two different scorers. If the ratio of HER2 /D17Z1 is 1.8-2.2,40 more nuclei are evaluated. Also, if the HER2 gene copy number is4.0-6.0, 40 more nuclei are evaluated. Depending on the initial ISHgroup, the case may be reflexed to HER2 immunohistochemistry (IHC) forIHC-guided FISH scoring. This FISH Probe Kit was approved by the FDA for this application and hasbeen validated in the Special Procedures Laboratory in the Department ofPathology, [facility]. REFERENCES 1. Javier Medina, et al. "Human epidermal growth factor receptor 2testing in breast cancer: [place] Society of Clinical Oncology/College ofAmerican Pathologists clinical practice guideline focused update."Archives of pathology & laboratory medicine 142.11 (2018): 3773-9630. This report may include one or more immunohistochemical stain results thatuse analyte specific reagents. All positive and negative controls havebeen reviewed by the attending pathologist and are satisfactory. The testswere developed and their performance characteristics determined by [facility] Pathology department. They have not been cleared or approved by the USFood and Drug Administration. The FDA has determined that such clearanceor approval is not necessary. Name Value Range Interpretation Code Description Data Lynn rce(s) Supporting Document(s) ID Date Data Source WW[employer] DIAGNOSTIC UNILATERAL MAMMO (Ultrasound if indica alex) 07/26/2020 12:00:00 AM EST eCW1 (Count Includes [facility]) Name Value Range Interpretation Code Description Data Lynn rce(s) Supporting Document(s) WWBC DIAGNOSTIC UNILATERA L MAMMO (Ultrasound if indicated) eCW1 (Count Includes [facility]) Procedure Social History Code Duration Value Status Description Data Source(s ) Smoking 04/05/2021 12:00:00 AM EDT Never Smoker completed Never S moker eCW1 (Count Includes [facility]) Smoking 04/05/2021 12:00:00 AM EDT Never Smoker completed Never S moker eCW1 (Count Includes [facility]) Smoking 03/02/2021 12:00:00 AM EDT Never Smoker completed Never S moker eCW1 (Count Includes [facility]) Smoking 03/02/2021 12:00:00 AM EDT Never Smoker completed Never S moker eCW1 (Count Includes [facility]) Smoking 03/02/2021 12:00:00 AM EDT Never Smoker completed Never S moker eCW1 (Count Includes [facility]) Smoking 12/21/2020 12:00:00 AM EDT Never Smoker completed Never S moker eCW1 (Count Includes [facility]) Smoking 12/21/2020 12:00:00 AM EDT Never Smoker completed Never S moker eCW1 (Count Includes [facility]) Smoking 08/21/2020 12:00:00 AM EST Never Smoker completed Never S moker eCW1 (Count Includes [facility]) Smoking 08/21/2020 12:00:00 AM EST Never Smoker completed Never S moker eCW1 (Count Includes [facility]) Smoking 08/21/2020 12:00:00 AM EST Never Smoker completed Never S moker eCW1 (Count Includes [facility]) Smoking 08/21/2020 12:00:00 AM EST Never Smoker completed Never S moker eCW1 (Count Includes [facility]) Smoking 07/31/2020 12:00:00 AM EST Never Smoker completed Never S moker eCW1 (Count Includes [facility]) Smoking 07/31/2020 12:00:00 AM EST Never Smoker completed Never S moker eCW1 (Count Includes [facility]) Smoking 07/31/2020 12:00:00 AM EST Never Smoker completed Never S moker eCW1 (Count Includes [facility]) Smoking 07/31/2020 12:00:00 AM EST Never Smoker completed Never S manjuker eCW1 (Count Includes [facility]) Smoking 07/31/2020 12:00:00 AM EST Never Smoker completed Never S manjuesvin eCW1 (Count Includes [facility]) Vital Signs ID Date Data Source UNK Name Value Range Interpretation Code Description Data Source(s) Body weight 123.8 [lb_av] 123.8 [lb_av] eCW1 ([facility]) Body weight 56.16 kg 56.16 kg eCW1 (Replaced by [facility]) Body height 66 [in_i] 66 [in_i] eCW1 (Replaced by [facility]) Body mass index (BMI) [Ratio] 19.98 kg/m2 19.98 kg/m2 W1 (Count Includes [facility]) Heart rate 120 /min 120 /min eCW1 ([facility]) Respiratory rate 18 /min 18 /min eCW1 ([facility]) Body temperature 97.6 [degF] 97.6 [degF] eCW1 ( Count Includes [facility]) Systolic blood pressure 140 mm[Hg] 140 mm[Hg] e CW1 (Count Includes [facility]) Diastolic blood pressure 82 mm[Hg] 82 mm[Hg] eCW1 (Count Includes [facility]) Diastolic blood pressure 70 mm[Hg] 70 mm[Hg] MEDENT ([facility], ) Heart rate 74 /min 74 /min MEDENT ([facility], ) Respiratory rate 14 /min 14 /min MEDENT ( [facility], ) Systolic blood pressure 128 mm[Hg] 128 mm[Hg] M EDENT ([facility], ) Body temperature 97.8 [degF] 97.8 [degF] MEDENT ([facility], ) Body height 65 [in_i] 65 [in_i] MEDENT ([facility], ) 5'5" Body weight 124.00 [lb_av] 124.00 [lb_av] MEDEN T ([facility], ) Body mass index (BMI) [Ratio] 20.6 kg/m2 20.6 k g/m2 MEDENT ([facility]) [place] body weight 125 [lb_av] 125 [lb_av] MEDEN T ([facility]) Body weight 56.246 kg 56.246 kg [facility] ([facility]) Body surface area Derived from formula 1.61 m2 1.61 m2 [facility] Body weight 120 [lb_av] 120 [lb_av] eCW1 ([facility]) Body weight 54.43 kg 54.43 kg eCW1 (Replaced by [facility]) Heart rate 118 /min 118 /min eCW1 ([facility]) Respiratory rate 18 /min 18 /min eCW1 ([facility]) Body temperature 98.1 [degF] 98.1 [degF] eCW1 ( Count Includes [facility]) Body mass index (BMI) [Ratio] 19.37 kg/m2 19.37 kg/m2 eCW1 (Count Includes [facility]) Systolic blood pressure 112 mm[Hg] 112 mm[Hg] e CW1 (Count Includes [facility]) Diastolic blood pressure 74 mm[Hg] 74 mm[Hg] eCW1 (Count Includes [facility]) Body height 66 [in_i] 66 [in_i] eCW1 (Replaced by [facility]) Body weight 128 [lb_av] 128 [lb_av] eCW1 ([facility]) Systolic blood pressure 120 mm[Hg] 120 mm[Hg] e CW1 (Count Includes [facility]) Diastolic blood pressure 78 mm[Hg] 78 mm[Hg] eCW1 (Count Includes [facility]) Body height 66 [in_i] 66 [in_i] eCW1 (Replaced by [facility]) Body mass index (BMI) [Ratio] 20.66 kg/m2 20.66 kg/m2 W1 (Count Includes [facility]) Heart rate 76 /min 76 /min eCW1 ([facility]) Respiratory rate 18 /min 18 /min eCW1 ([facility]) Body temperature 97.5 [degF] 97.5 [degF] eCW1 ( Count Includes [facility]) Body weight 138 [lb_av] 138 [lb_av] eCW1 ([facility]) Body weight 62.6 kg 62.6 kg eCW1 (Replaced by [facility]) Body height 66 [in_i] 66 [in_i] eCW1 (Replaced by [facility]) Body mass index (BMI) [Ratio] 22.27 kg/m2 22.27 kg/m2 eCW1 ([facility]cludes [facility]) Heart rate 74 /min 74 /min eCW1 ([facility]) Respiratory rate 18 /min 18 /min eCW1 ([facility]) Body temperature 98.1 [degF] 98.1 [degF] eCW1 ( Count Includes [facility]) Systolic blood pressure 126 mm[Hg] 126 mm[Hg] e CW1 (Count Includes [facility]) Diastolic blood pressure 82 mm[Hg] 82 mm[Hg] eCW1 (Count Includes [facility]) Body weight 137 [lb_av] 137 [lb_av] eCW1 ([facility]) Body weight 62.14 kg 62.14 kg eCW1 (Replaced by [facility]) Body height 66 [in_i] 66 [in_i] eCW1 (Replaced by [facility]) Body mass index (BMI) [Ratio] 22.11 kg/m2 22.11 kg/m2 eCW1 (Count Includes [facility]) Heart rate 78 /min 78 /min eCW1 ([facility]) Respiratory rate 18 /min 18 /min eCW1 ([facility]) Body temperature 98.7 [degF] 98.7 [degF] eCW1 ( Count Includes [facility]) Systolic blood pressure 136 mm[Hg] 136 mm[Hg] e CW1 (Count Includes [facility]) Diastolic blood pressure 84 mm[Hg] 84 mm[Hg] eCW1 (Count Includes [facility]) Body weight 136 [lb_av] 136 [lb_av] eCW1 ([facility]) Body weight 61.69 kg 61.69 kg eCW1 (Replaced by [facility]) Body height 66 [in_i] 66 [in_i] eCW1 (Replaced by [facility]) Body mass index (BMI) [Ratio] 21.95 kg/m2 21.95 kg/m2 eCW1 (Count Includes [facility]) Heart rate 72 /min 72 /min eCW1 ([facility]) Respiratory rate 18 /min 18 /min eCW1 ([facility]) Body temperature 99.1 [degF] 99.1 [degF] eCW1 ( [facility]cludes [facility]) Systolic blood pressure 138 mm[Hg] 138 mm[Hg] e CW1 (Count Includes [facility]) Diastolic blood pressure 80 mm[Hg] 80 mm[Hg] eCW1 (Count Includes [facility]) Patient Treatment Plan of Care Planned Activity Planned Date Details Description Data Source (s) montelukast 10 MG Oral Tablet 04/05/2021 12:00:00 AM EDT eCW1 (Count Includes [facility]) montelukast 10 MG Oral Tablet 04/05/2021 12:00:00 AM EDT eCW1 (Count Includes [facility]) Lidocaine 25 MG/ML / Prilocaine 25 MG/ML Topical Cream 03/23/2021 12:00:00 AM EDT eCW1 ([facility]) 200 ACTUAT Albuterol 0.09 MG/ACTUAT Metered Dose Inhal er [Ventolin] 12/21/2020 12:00:00 AM EDT eCW1 ([facility]) Metamucil 48.57 % 12/21/2020 12:00:00 AM EDT eCW1 (Count Includes [facility]) 200 ACTUAT Albuterol 0.09 MG/ACTUAT Metered Dose Inhal er [Ventolin] 12/21/2020 12:00:00 AM EDT eCW1 ([facility]) Metamucil 48.57 % 12/21/2020 12:00:00 AM EDT eCW1 (Count Includes [facility]) Metamucil 48.57 % 12/21/2020 12:00:00 AM EDT eCW1 (Count Includes [facility]) 200 ACTUAT Albuterol 0.09 MG/ACTUAT Metered Dose Inhal er [Ventolin] 12/21/2020 12:00:00 AM EDT eCW1 ([facility]) Metamucil 48.57 % 12/21/2020 12:00:00 AM EDT eCW1 (Count Includes [facility]) 200 ACTUAT Albuterol 0.09 MG/ACTUAT Metered Dose Inhal er [Ventolin] 12/21/2020 12:00:00 AM EDT eCW1 ([facility])
--- OUTSIDE RECORDS SUMMARY | 2021-04-10 06:28 | CCD ---
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 Active confirmed 286724021 Problem Asthma, mild intermittent J45.20 Active confirmed 994403291 Problem Malignant neoplasm of right female breast, unspecified estrogen receptor status, unspecified site of breast C50.911 Active confirmed 725727590 Problem Malignant neoplasm of unspecified site of unspec ified female breast C50.919 Active confirmed 444455724 Problem Breast cancer C50.919 Active confirmed 28198 7009 Problem Constipation K59.00 Active confirmed 0836752 8 ALLERGIES No Known Allergies ENCOUNTERS from 1972 to 2021-03-26 Encounter Location Date Provider Diagnosis [facility] [address] [place] [address] [place] [address] 11 Mar, 2021 Gretel Lindsey IMMUNIZATIONS No Information SOCIAL HISTORY Tobacco Use: Social History Observation Description Date Details (start date - stop date) Never Smoker Sex Assigned At : Social History Observation Description Sex Assigned At Unknown Education: Question Answer Notes Level of Education: College Language: Question Answer Notes Languages spoken: Thai Scientologist: Question Answer Notes Scientologist 21 Shinto Sexual Hx: Question Answer Notes Had sex [...] Externally once for 1 day Mar, Active Ventolin HFA 108 (90 Base) MCG/ACT 1 puff as needed In halation every 4 hrs for 30 Days Dec, Active Paragard Intrauterine Copper - as directed Intrauterine Active Metamucil 48.57 % as directed Orally Daily for 30 Days Dec, Active PROCEDURES No Information RESULTS No Results REASON FOR VISIT 04/10/21 SURG AUTH MEDICAL (GENERAL) HISTORY Type Description Date Medical History asthma Medical History environmental/seasonal allergies Medical History 2020 - 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 Surgical History Right Breast Biopsy with Rig ht axillary lymph node biopsy - Infiltrating ductal carcinoma 07/26/20 Hospitalization History childbirth Hospitalization History asthma attack in 1992 during pregn cy 1992 Goals Section No Information Health Concerns No Information MEDICAL EQUIPMENT No Information MENTAL STATUS No Information FUNCTIONAL STATUS No Information ASSESSMENTS No Information PLAN OF TREATMENT Medication Medication Name Sig Start Date Stop Date Lidocaine-Prilocaine 2.5-2.5 % apply entire tube to ri ght nipple and surrounding tissue 2 hours prior coming to hospital for surgery. Cover with plastic Externally once for 1 day Mar, Next Appt Details Provider Name:Jose Irby, 2021-04-05 0 9:45:00 AM, [address] [facility], , [place], [address], Provider Name:Gretel Lindsey, 05-04-26 11:15:00 AM, [address] [place] [address], , [place], [address], Provider Name:Gretel Lindsey, 06-05-10 07:30:00 AM, [address] [place] [address], , [place], [address], Provider Name:Mary Williamson, 12-25 11:00:00 AM, [address] [place] [address], , [place], [address], Insurance Providers Payer Name Payer Address Payer Phone Insured Name Patient Relati onship to Insured Coverage Start Date Coverage End Date BCBS OF [facility] [phone] [facility] [id number] ROEL GRISSOM self
--- OUTSIDE RECORDS SUMMARY | 2021-04-10 06:28 | CCD | Continuity of Care Document ---
Author Author Elizabeth GATICA DO Organization Unknown Address [address] [place] [address] Phone [phone] Care Team Providers Care Snack Stewardess Name Role Phone Gretel Lindsey D.O. AUTM [phone] Dolly Williamson AUTM Sdio AUTM [phone] Problems Active Problems Provider Date Allergic asthma without status asthmaticus Samina Gatica DO Onset: 03/23/2021 Social History Type Date Description Comments Sex Female ETOH Use Occasionally consumes alcohol Tobacco Use Start: Unknown Denies Smoking Smoking Status Reviewed: 03/28/21 Denies Smoking Allergies and adverse reactions Description [...] lb BMI (Body Mass Index) 20.6 kg/m2 [place] Body Weight 125 lb Weight 56.246 kg BSA (Body Surface Area) 1.61 m2 Results Description No Information Available Procedures Date Code Description Status 03/23/2021 57661 Office/Outpatient New Moderate M DM 45-59 Minutes Completed Medical Devices Description No Information Available Encounters Type Date Location Provider Dx Diagnosis Office Visit 03/23/2021 9:15a [facility] Samina pena DO C50.411 Malig neoplm of upper-outer quadrant of right female breast N64.81 Ptosis of breast Assessments Date Code Description Provider 03/23/2021 C50.411 Malignant neoplasm o f upper-outer quadrant of right female breast Samina Gatica DO 03/23/2021 N64.81 Ptosis of breast Samina Gatica DO Plan of Treatment Future Appointment(s):* 04/18/2021 2:45 pm - Samina Gatica DO at [facility] * 04/10/2021 11:15 am - Samina Gatica DO at [facility] 03/23/2021 - Samina Gatica DO* C50.411 Malignant neoplasm of upper-outer quadrant of right female breast * N64.81 Ptosis of breast * * Comments:* Reconstruction options presented to patient. Given her body habitus she is a good candidate for immediate postmastectomy prepectoral breast reconstruction with singing teacher to implant. Patient wishes to be on the smaller side. Risk, benefits, and alternatives of the procedure discussed with the patient. She understands that radiation is possibly planned and may cause additional risks for reconstruction. She is willing to proceed.Implants: [place] singing teacher 250cc. [email or web address] post op. Functional Status Description No Information Available Mental Status Description No Information Available Referrals Description No Information Available
[2021-04-10] MEDS ORDERED: SUGAMMADEX SODIUM 500 MG/5 ML VIAL (BRIDION) As Ordered ONE (07:28)
[2021-04-10] MEDS ORDERED: MIDAZOLAM INJ 2MG/2ML VIAL (J2250 PER 1MG) As Ordered ONE (07:28)
[2021-04-10] MEDS ORDERED: METOCLOPRAMIDE INJ 10MG/2ML VIAL (J2765 PER 1) As Ordered ONE (07:28)
[2021-04-10] MEDS ORDERED: fentaNYL 250 MCG/5 ML INJECTION (J3010) As Ordered ONE (07:28)
[2021-04-10] MEDS ORDERED: propofoL 200 MG/20 ML VIAL As Ordered ONE (07:28)
[2021-04-10] MEDS ORDERED: ONDANSETRON 4MG/2ML VIAL As Ordered ONE (07:28)
[2021-04-10] MEDS ORDERED: ROCURONIUM BROMIDE 50 MG/5 ML VIAL As Ordered ONE (07:28)
[2021-04-10] MEDS ORDERED: dexameTHASONE 4 MG/ML 1ML VIAL (J1100 PER 1MG) As Ordered ONE ×2 (07:28→11:03)
[2021-04-10] MEDS ORDERED: LIDOCAINE 2% 100MG/5ML SDV (FOR ANES.) As Ordered ONE (07:31)
[2021-04-10] MEDS ORDERED: GENTAMICIN SULF 80MG/2ML VIAL As Ordered ONE ×2 (07:33→10:41)
[2021-04-10] MEDS ORDERED: BUPIVACAINE LIPOSOME/PF 1.3% 20ML VIAL (13.3MG/ML)(EXPAREL)(C9290 PER1MG) As Ordered ONE (07:33)
[2021-04-10] MEDS ORDERED: METHYLENE BLUE 0.5% (5MG/ML) 10 ML AMP (PROVAYBLUE) As Ordered ONE (09:20)
[2021-04-10] MEDS ORDERED: SUCCINYLCHOLINE 100 MG/5 ML SYRINGE (J0330) As Ordered ONE (09:56)
[2021-04-10] MEDS ORDERED: ISOSULFAN BLUE(LYMPHAZURIN) 1% 50MG/5ML VIAL As Ordered ONE (10:00)
[2021-04-10] MEDS ORDERED: LACRILUBE (AKWA TEARS) OPHTH OINT 3.5 GM As Ordered ONE (11:20)
[2021-04-10] MEDS ORDERED: ACETAMINOPHEN 1000MG 100ML IV BTL (OFIRMEV) (J0131 PER 10MG) As Ordered ONE (11:20)
[2021-04-10] MEDS ORDERED: PHENYLephrine 500MCG 5ML (100MCG/ML) SYRINGE As Ordered ONE (11:22)
[2021-04-10] MEDS ORDERED: HYDROmorphone HCL 2 MG/ML 1ML VIAL As Ordered ONE (11:44)
[2021-04-10] MEDS ORDERED: DESFLURANE 240 ML INHALANT As Ordered ONE (12:47)
[2021-04-10] MEDS ORDERED: DUOVISC (0.50ML VISCOAT/0.85ML PROVISC) OPHTH KIT As Ordered ONE (13:12)
[2021-04-10] MEDS ORDERED: MORPHINE 2 MG/ML 1ML VIAL (J2270) IV PRN (14:50)
[2021-04-10] MEDS ORDERED: LR 1,000 ML IV SCH ×2 (14:50→15:35)
[2021-04-10] MEDS ORDERED: ONDANSETRON 4MG/2ML VIAL IV PRN ×2 (14:50→15:35)
[2021-04-10] MEDS ORDERED: ACETAMINOPHEN TAB 650MG DOSE (2X325MG) PO PRN (14:50)
--- NOTE | 2021-04-10 15:20 | POST-OPPD ---
Postoperative Procedure Note Date Of Procedure: Apr 10, 2021 PREOPERATIVE DIAGNOSIS: Right breast cancer. Acquired deformity right breast. POSTOPERATIVE DIAGNOSIS: same PROCEDURE: Immediate post mastectomy reconstruction with tissue accounts clerk. Prepectoral approach. SURGEON: Dr Gatica PROGRAM COORDINATOR: Dr Lindsey ANESTHESIA: general ESTIMATED BLOOD LOSS: 50cc FINDINGS: right breast mastectomy SPECIMENS: none COMPLICATIONS: none REPLACED: none DRAINS: 10 mm VICENTE drain IMPLANT: 250 cc [place] low profile smooth accounts clerk. Filled to 150 cc. NS. Allomax [id number] POSTOPERATIVE CONDITION: stable CHRIS GATICA DO Apr 10, 2021 15:20
--- NOTE | 2021-04-10 15:22 | ROOPDOC ---
[facility] Report Of Operation Report of Operation DATE OF PROCEDURE: 04/10/21 PREOPERATIVE DIAGNOSIS: Right breast cancer. Acquired deformity right breast. POSTOPERATIVE DIAGNOSIS: same PROCEDURE: Immediate post mastectomy reconstruction with tissue program supervisor. Prepectoral approach. SURGEON: Dr Gatica BIOSECURITY OFFICER: Dr [place] ANESTHESIA: general ESTIMATED BLOOD LOSS: 50cc FINDINGS: right breast mastectomy SPECIMENS: none COMPLICATIONS: none REPLACED: none DRAINS: 10 mm VICENTE drain IMPLANT: 250 cc [place] low profile smooth program supervisor. Filled to 150 cc. NS. Allomax [id number] POSTOPERATIVE CONDITION: stable DESCRIPTION OF PROCEDURE: This is a 51-year-old female who is scheduled for right mastectomy with sentinel lymph node biopsy today. Patient is planned to have radiation in the future. We have discussed prepectoral reconstruction with her as an option. Risk, benefits, and alternatives of the procedure discussed with patient in detail. She is ready to proceed. The day of surgery patient was marked in the upright position. Informed consent was confirmed. Patient was brought into the operating room, placed in supine position. General anesthesia was induced. She was given preoperative antibiotics. Sequential stockings were placed in the lower calves. She is prepped and draped in the usual sterile fashion. Mastectomy portion of the procedure as well as the sentinel lymph node biopsy of the procedure are dictated by Dr. Lindsey. After that part of the procedure was completed, I have started the reconstruction part of the procedure. The wound was examined, no active bleeding was encountered. Pectoralis muscle and the skin flaps are in good condition. We have measured the pocket and laxity of the flaps and concluded that 250 cc [place] low-profile program supervisor would be a good fit. It was opened on the back table. And while Dr. Lindsey is irrigated the pocket and gave local anesthesia with Exparel was getting the program supervisor wrapped with Aller-Max on the back table. I have used 16 x 18 piece of Aller-Max which was soaked into patterson with regular saline following by gentamicin saline. Fenestrations were created with 10 blade. And then 250 cc [place] program supervisor was wrapped with Aller-Max. We have inflated program supervisor with 180 cc of normal saline initially. Then the wrapped program supervisor was introduced into the pocket superior tabs as well as inferior and lateral tabs were secured to the pectoralis muscle. When the skin flaps were measured for closure it appears to be slightly tight therefore 30 cc of normal saline was taken out leaving us with 150 cc of normal saline left in the program supervisor. The pillars of skin were started closing in layers with 3-0 Vicryl and 3-0 Monocryl sutures. 10 mm Toney-Quiros drain was placed through a separate stab incision. It was secured in place with 3-0 Monocryl sutures. Excess tissue on the inferior limb was measured devitalized and used to strengthen the lower pole of the breast. Horizontal incision was created and closed with 3-0 Monocryl sutures. Good contour was achieved. Prineo dressing was placed on vertical and horizontal incision also on her right axillary incision. Bulky dressing and surgical bra was placed. Patient tolerated procedure well and transferred to recovery in stable condition. CHRIS GATICA DO Apr 10, 2021 15:22
[2021-04-10] MEDS ORDERED: fentaNYL 100 MCG/2 ML INJECTION (J3010) IV PRN (15:35)
[2021-04-10] MEDS ORDERED: PERCOCET 5MG/325MG TAB PO PRN (15:35)
[2021-04-10] MEDS ORDERED: METOCLOPRAMIDE INJ 10MG/2ML VIAL (J2765 PER 1) IV PRN (15:35)
[2021-04-10 16:40] VITALS: BP 142/96
[2021-04-10 17:10] VITALS: BP 153/88
[2021-04-10] MEDS: ceFAZolin SOD 2 GM in IV 1 EA IV SCH (17:18)
--- NOTE | 2021-04-10 17:34 | REP ---
INDICATION: RIGHT BREAST CA. COMPARISON: None. TECHNIQUE/RADIOTRACER AND DOSE: This procedure was performed by PEACE Robles, under the direct supervision of Dr. Venegas. Images were reviewed with Dr. Venegas prior to dictation. The risks and benefits of the procedure were explained to the patient and informed consent was obtained both orally and written. Directly prior to the start of the procedure, a formal timeout was done in the exam room. Using topical anesthetic and sterile technique 1.019 mCi of filtered Technetium-99m sulfur colloid was injected subdermally in 8 fractionated periareolar injections. FINDINGS: Images obtained 1 hour after injection show there is a dominant right axillary focus of increased uptake.. IMPRESSION: Images obtained 1 hour after injection show there is a dominant right axillary focus of increased uptake. <Electronically signed by Marj Montgomery > 04/10/21 1008 <Electronically signed by Deon Venegas > 04/10/21 1527
[2021-04-10 18:10] VITALS: BP 163/85
--- NOTE | 2021-04-10 19:23 | ROOPDOC ---
[facility] Report Of Operation Report of Operation DATE OF PROCEDURE: 04/10/21 PREPROCEDURE DIAGNOSES: Right breast cancer POSTPROCEDURE DIAGNOSES: same PROCEDURE PERFORMED: Right skin sparing mastectomy with reconstruction, Right sentinel lymph node biopsy with double tracer, injection of blue due into retroareolar region, intraop wire placement into right axilla, right axillary targeter dissection, right axillary frozen section, Right pectoralis and Serratus muscle block, Intraop radiography with interpretation SURGEON: Dr Bo Lindsey SKI PRODUCTION SUPERVISOR: Dr. Hu Shane ANESTHESIA: general ESTIMATED BLOOD LOSS: Approximately 100 mL. FINDINGS: previously clipped node identified, frozen section of axillary lymph nodes showed atypical cells suspicious for cancer but no obvious cancer cells, additional evaluation is needed, ALND was not pursued at this time PROCEDURE NOTE: INDICATIONS: Ms. Shore is a 51-year-old lady who was found to have a suspicious mass in the right lower breast. This was evaluated with diagnostic imaging and she was found to have a large right breast spiculated mass with suspicious calcifications at 6:00. This was biopsied and came back as IDG, Gr 3, ER +. PER +, Her 2 negative. On exam patient also had a palpable area at 3:00 in her right breast and large palpable lymph node. Both of those lesions were biopsied. The lymph node was positive for malignancy. The 3:00 area came back positive for DCIS. Patient had MRI of the breast done which did not show additional suspicious lesions. Due to positive lymph node, patient underwent Neoadjuvant chemotherapy with excellent radiologic and clinical response. Patient wished to pursue mastectomy with reconstruction. I also explained to patient that we will do right axillary sentinel lymph node with dual tracer, right targeted axillary lymph node dissection with intraop wire placement and frozen section. I explain the reasoning behind the above in great details. Risks and possible complications of surgical procedure including bleeding, infection and injury to surrounding structures were explained to the patient and she wished to proceed. Consent was signed. Subcutaneous heparin 5000 units was given to patient in the preop area. Lymphoscintigraphy was reviewed preoperatively and the tracer was found in the right axilla. Dr Shane marked the patient preoperatively as well. DETAILS: Patient was taken to the operating room and placed supine on the operating room table. Pillow was placed under her knees. Foam was placed under her heels. A sign in was called stating patients name, date of and the procedure to be done. Preoperative antibiotics were infused. Smooth induction of general anesthesia was done. Patients hands were extended on arm rests. Care was taken not to over extend patients arms. Kendrick catheter was placed. Pillow was placed under the knees and a foam was placed under the hills. Sequential compression devices were placed and assured to function correctly. Procedure was started with right axillary intraop wire localization. Appropriate time out was done and patients name, date of , and the procedure to be done were confirmed. Right breast and axilla were cleaned by me. Intraoperative ultrasound was used to confirm location of the Hydromark clip immediately adjacent to previously biopsied lymph node. Location of the clip was marked on the skin as well. 21 G Total Boox Breast Lesion Localization Needle was used to place 25 cm wire through the clip and the lymph node. The end of the wire was passed slightly deep. The images were captured confirming adequate placement of the localizing wire. Color Making Supervisor assisted with the wire placement. At this time, I injected 4 cc of isosulfan blue, undiluted, into the retroareolar subdermal lymphatic plexus. Breast mass appropriately massaged for 5 minutes to allow the passage of the due into the right axilla. There was no adverse reaction to dye injection. Patients bilateral breasts and axillas were prepped and draped in the usual fashion. Neoprobe was used to jewel the site of maximal signal in the right axilla. The right breast hydromark clips location, marking sites, of tumors were marked on the skin using intraop ultrasound. Appropriate time out was done again and patients name, date of , and the procedure to be done were confirmed. Next, I concentrated first on the right axillary lymph nodes since frozen section was planned to be sent. Neoprobe was used to locate area of maximum intensity of the signal. An incision was made with scalpel number 15 at the inferior aspect of axillary hair line in the right axilla where the maximum signal was identified. The sharp and blunt dissection was continued through the subcutaneous adipose tissue. Clavipectoral fascia was opened. The previously placed right axillary wire was freed from the surrounding tissue while dissection was progressing. Neoprobe was used to guide the dissection. First sentinel lymph node was identified in deep axilla and excised. On review this was a cluster of at least 3 nodes. One of the nodes contained the wire. All of the nodes were also blue. The ex-vivo 10 second count of this lymph node cluster was 534[address]. This specimen was placed on the grid and an intraop image was taken with the [employer]. The intraop radiography of this specimen showed the wire and the clip in the specimen. The images were saved in PACS. Second sentinel lymph node was identified and excised as well. This lymph node was not blue. The ex-vivo 10 second count was 1150. The third sentinel lymph node was identified in the superior aspect and was palpable and blue. On closer review this may be another cluster of nodes containing at least 2 lymph nodes. There was no radioactive signal of this lymph node. The specimens were labeled with patients name and sent to pathology for frozen section as there were dissected. There was no lag time. No additional blue lymph nodes, palpable l ymph nodes or lymph nodes with high radioactive signal were identified. The 10 second count of the background was 14. Adequate hemostasis was assured. Frozen section of all 3 specimens came back negative for viable cancer. Pathologist reported that there were atypical cells noted in the first two excisions. Those cells are suspicious for cancer, however, addition immunohistochemical evaluation must be done to further evaluate the lymph nodes. At this time, since I did not have open diagnosis of viable cancer in the lymph nodes, I did not pursue axillary dissection. Exparel was injected into surrounding tissues to help with pain. Wound was irrigated. Clavipectoral fascia was closed with 2-0 Vicryl interrupted suture. Dermal layer was closed with 3-0 Monocryl and skin was closed with 4-0 Monocryl. Surgical glue was applied to the incision at the end of the procedure. Next, I proceeded with the right breast mastectomy. Double stitch was placed at sites of right breast hydromark clips at 6:00 and 3:00. Those sites marked cancer sites. A tear- drop incision was made to encompass nipple-areolar complex and skin over the 6:00 cancer area. Incision was extended to inframammary fold. Subcutaneous flaps were developed using electrocautery dissection. Dissection was carried toward the inframammary fold inferiorly, toward sternum medially, toward inferior aspect of clavicle superiorly and toward the axilla laterally. Breast tissue was dissected from the muscle posteriorly and pectoralis fascia was taken with the specimen. The dissection was carried all the way to the Darrick of Sen making sure that axilla is not entered. Breast specimen was marked for orientation with short, single stitch marking superior edge of mastectomy and long, single stitch marking lateral edge of mastectomy. The specimen was weighted and weight of338 grams was reported. The specimen was then placed in formaldehyde, and passed to pathology. Mastectomy cavity was irrigated. Right pectoralis and right serratus muscle blocks were done with Exparel. The right skin sparing mastectomy and right axillary evaluation portion of the procedure was completed. Instrument and sponge count was correct. The chest was re-prepped and re-draped for Dr Delacruz part of procedure involving tissue graphite pan drier tender placement. Please refer to Dr. Delacruz note for details of this part of the procedure. I assisted with the reconstruction part of the procedure as well and stayed scrubbed throughout entire procedure. 10 mm flat VICENTE drain was placed through separate stab incision and secured in place with suture. Right mastectomy incision was closed in the usual fashion. Dermabond with Prineo dressing was placed. Patient emerged from general anesthesia without any problems. Kendrick was removed. Patient tolerated procedure well and was taken to recovery unit in stable condition. MALLIKA LINDSEY DO Apr 10, 2021 17:56
[2021-04-10 21:00] VITALS: BP 146/88
[2021-04-10] MEDS: HEPARIN SOD (PORCINE) 5000UNITS/ML 1ML VIAL/SYRINGE SQ SCH (21:16)
[2021-04-10 22:00] VITALS: BP 166/83
[2021-04-10] MEDS: traMADol 50 MG TAB PO PRN (22:41)
[2021-04-11] MEDS: ceFAZolin SOD 2 GM in IV 1 EA IV SCH ×2 (01:08→08:30)
[2021-04-11] MEDS: HEPARIN SOD (PORCINE) 5000UNITS/ML 1ML VIAL/SYRINGE SQ SCH ×2 (05:05→14:00)
[2021-04-11] MEDS: traMADol 50 MG TAB PO PRN ×2 (05:06→12:03)
[2021-04-11 06:17] VITALS: BP 176/89
--- NOTE | 2021-04-11 09:45 | IPNPDOC ---
Subjective General Date Seen: Apr 11, 2021 Subject Chief Complaint/History The patient is a 51-year-old female admitted with a reason for visit of Right Breast Cancer, Right Breast Acquired.... Patient status post right mastectomy with sentinel lymph node dissection and immediate postmastectomy reconstruction with detective sergeant placement. Postop day 1. Pain controlled. Patient is feeling well today. She is tolerating diet, ambul ating to the bathroom by herself. Current Medications Current Medications Current Medications Medications (Trade) Dose Ordered Sig/Vini Route PRN Reason Start Time Stop Time Status Last Admin Dose Admin Acetaminophen (Tylenol Tab) 650 mg Q6H PRN PO MILD PAIN (PS 1-4) 04/10/21 14:50 04/10/21 18:41 Cefazolin Sodium/ Dextrose 2 gm/IV Miscellaneous Supplies 50 ml @ 75 mls/hr Q8H IV 04/10/21 17:00 04/11/21 11:00 04/11/21 08:30 Fentanyl Citrate (Sublimaze) 25 mcg Q5MP PRN IV PAIN LEVEL 8-10 04/10/21 15:35 04/10/21 17:35 DC Heparin Sodium (Porcine) (Heparin) 5,000 units Q8H SQ 04/10/21 22:00 04/11/21 05:05 Lactated Ringer's 1,000 ml @ 75 mls/hr [id number] IV 04/10/21 14:50 04/10/21 18:19 DC 04/10/21 17:18 Lactated Ringer's 1,000 ml @ 100 mls/hr Q10H IV 04/10/21 15:35 04/10/21 17:35 DC Lidocaine HCl (LIDOCAINE 1% MDV 20ml) 0.1 ml ONCE PRN SQ DISCOMFORT BEFORE IV START 04/10/21 06:00 04/10/21 15:19 DC Metoclopramide HCl (REGLAN INJection) 10 mg Q6HP PRN IV NAUSEA OR VOMITING 04/10/21 15:35 04/10/21 17:35 DC Morphine Sulfate (Morphine Sulfate Inj) 2 mg Q3H PRN IV SEVERE PAIN (PS 8-10) 04/10/21 14:50 Ondansetron HCl (ZOFRAN INJection) 4 mg Q4H PRN IV NAUSEA OR VOMITING 04/10/21 14:50 04/10/21 15:49 Ondansetron HCl (ZOFRAN INJection) 4 mg Q4HP PRN IV NAUSEA OR VOMITING 04/10/21 15:35 04/10/21 17:35 DC Oxycodone/ Acetaminophen (Percocet 5mg/ 325mg Tablet) 1 tab ASDIRECTED PRN PO PAIN LEVEL 1-4 04/10/21 15:35 04/10/21 17:35 DC 04/10/21 15:46 Tramadol HCl (Ultram) 50 mg Q6HP PRN PO MODERATE PAIN (PS 5-7) 04/10/21 14:50 04/11/21 05:06 Allergies Coded Allergies: No Known Drug Allergies (Verified Allergy, Unknown, 04/06/21) Objective Physical Examination Examination GENERAL APPEARANCE:Patient seen, laying in bed, awake, alert, and oriented. Comfortable, in no acute distress. SKIN: Warm and moist. BREAST: Right and left soft, non-tender incisions intact. VICENTE drains: 40 cc/24 hr. Flaps viable, pink. LUNGS: Clear to auscultation bilaterally. No wheezing appreciated. HEART: No chest wall abnormalities. Regular rate and rhythm with no murmurs appreciated. ABDOMEN: Abdomen is soft, non-tender, non-distended. EXTREMITIES: No edema identified. No calf tenderness. Vital Signs Vital Signs Date Time Temp Pulse Resp B/P (MAP) Pulse Ox O2 Delivery O2 Flow Rate FiO2 04/11/21 06:17 97.8 76 18 176/89 (118) 97 Room Air 04/10/21 16:10 2.0 I&Os I&O- Last 24 Hours up to 6 AM 04/11/21 06:00 Intake Total 2950 ml Output Total 1240 ml Balance 1710 ml Impression Status post right mastectomy with sentinel lymph node biopsy and immediate reconstruction. Stable for discharge. Dressings changed today, home instructions given. Follow-up with breast surgery and plastic surgery after discharge. Plan / VTE VTE Prophylaxis Ordered?: Yes CHRIS GATICA DO Apr 11, 2021 09:45
[2021-04-11] MEDS ORDERED: TRAM50TA2 PO (09:54)
== END 2021-04-11 14:25 | disposition home or self-care (01) ==
LOC: M SDC 06:25 → M MS5PR 06:26 → M SDC 16:30 → M MS5PR 16:30 → M SDC 04-11 14:25 → M MS5PR 04-11 14:25
PROVIDERS: ADMIT Surgery; ATTEND Surgery
DX: D05.11 Intraductal carcinoma in situ of right breast (principal); C77.3 Secondary and unspecified malignant neoplasm of axilla and upper limb lymph nodes; N64.89 Other specified disorders of breast; J45.909 Unspecified asthma, uncomplicated; Z92.21 Personal history of antineoplastic chemotherapy; F41.9 Anxiety disorder, unspecified; Z97.5 Presence of (intrauterine) contraceptive device
CPT/HCPCS: 19303; 19357; 36415; 38525; 64420; 64450; 76942; 78195; 81025; 86850; 86900; 86901; 88307; 88341; 88342; 96374; 96376; A9541; C1789; C9290; J0131; J0330; J0690; J1100; J1170; J1580; J1644; J2250; J2370; J2405; J2765; J3010; Q4100; Q9968

== ENCOUNTER → 2021-04-28 | Outpatient (CLI) | payer BC ==
[~2021-04-28] MED LIST changes: -HEPARIN SOD (PORCINE) 5000UNITS/ML 1ML VIAL/SYRINGE SQ ONE; -LIDOCAINE 1% MDV 20ML VIAL SQ PRN; -LR 1,000 ML IV ONE; -NS 1,000 ML IV ONE; +TRAM50TA2 PO; -ceFAZolin SOD 2 GM in IV 1 EA IV ONE
== END ==
LOC: M LABSMTC 10:30
PROVIDERS: ATTEND Anesthesiology
DX: Z01.818 Encounter for other preprocedural examination (principal); Z11.52 Encounter for screening for COVID-19

== ENCOUNTER 2021-05-01 12:30 | Outpatient (RCR) | payer BC ==
[~2021-05-01 12:30] MED LIST changes: -ALBU8.5H; +ALBU8.5H INH; -MONT10TA10 PO; +MONT10TA97 PO; -PROC10TA4 PO; +PROC10TA5 PO
[2021-05-04] MEDS ORDERED: [UNRECOGNIZED DRUG - CODE] OD (09:29)
[2021-05-04] MEDS ORDERED: TRAM50TA2 PO (09:29)
[2021-05-04] MEDS ORDERED: CIPR-249 PO (09:29)
[2021-05-04] MEDS ORDERED: SULF1TAB23 PO (09:45)
[2021-07-20] MEDS ORDERED: MONT10TA97 PO (14:34)
[2021-07-20] MEDS ORDERED: ANAS1TAB2 PO (14:56)
[2021-07-20] MEDS ORDERED: DESV25TA PO (14:57)
== END 2021-05-15 ==
LOC: M PT 12:30
PROVIDERS: ATTEND Surgery
DX: C50.911 Malignant neoplasm of unspecified site of right female breast (principal)

== ENCOUNTER 2021-05-03 11:28 | Observation (INO) | payer BC ==
[~2021-05-03] VITALS: Ht 165.1 cm; Wt 54.0 kg
[~2021-05-03 11:28] MED LIST changes: +HEPARIN SOD (PORCINE) 5000UNITS/ML 1ML VIAL/SYRINGE SQ ONE; +LR 1,000 ML IV ONE; +ceFAZolin SOD 2 GM in IV 1 EA IV ONE
[2021-05-03] MEDS ORDERED: BUPIVACAINE HCL 0.25% 30ML VIAL As Ordered ONE (13:35)
[2021-05-03] MEDS ORDERED: METHYLENE BLUE 0.5% (5MG/ML) 10 ML AMP (PROVAYBLUE) As Ordered ONE (13:35)
[2021-05-03] MEDS ORDERED: LIDOCAINE 1% SDV 30ML VIAL As Ordered ONE (13:35)
[2021-05-03] MEDS ORDERED: ISOSULFAN BLUE(LYMPHAZURIN) 1% 50MG/5ML VIAL As Ordered ONE (13:38)
[2021-05-03] MEDS ORDERED: propofoL 200 MG/20 ML VIAL As Ordered ONE ×2 (14:48→15:44)
[2021-05-03] MEDS ORDERED: METOCLOPRAMIDE INJ 10MG/2ML VIAL (J2765 PER 1) As Ordered ONE (14:48)
[2021-05-03] MEDS ORDERED: SUGAMMADEX SODIUM 500 MG/5 ML VIAL (BRIDION) As Ordered ONE (14:48)
[2021-05-03] MEDS ORDERED: LIDOCAINE 2% 100MG/5ML SDV (FOR ANES.) As Ordered ONE (14:48)
[2021-05-03] MEDS ORDERED: ROCURONIUM BROMIDE 50 MG/5 ML VIAL As Ordered ONE (14:48)
[2021-05-03] MEDS ORDERED: dexameTHASONE 4 MG/ML 1ML VIAL (J1100 PER 1MG) As Ordered ONE (14:48)
[2021-05-03] MEDS ORDERED: fentaNYL 100 MCG/2 ML INJECTION As Ordered ONE ×2 (14:48→15:05)
[2021-05-03] MEDS ORDERED: ONDANSETRON 4MG/2ML VIAL As Ordered ONE (14:48)
[2021-05-03] MEDS ORDERED: MIDAZOLAM INJ 2MG/2ML VIAL (J2250 PER 1MG) As Ordered ONE (14:48)
[2021-05-03] MEDS ORDERED: SUCCINYLCHOLINE 100 MG/5 ML SYRINGE (J0330) As Ordered ONE (14:48)
[2021-05-03] MEDS ORDERED: ACETAMINOPHEN 1000MG 100ML IV BTL (OFIRMEV) (J0131 PER 10MG) As Ordered ONE (14:50)
[2021-05-03] MEDS ORDERED: PHENYLephrine 500MCG 5ML (100MCG/ML) SYRINGE As Ordered ONE ×2 (14:53→16:38)
[2021-05-03] MEDS ORDERED: ePHEDrine SULFATE 25 MG/5 ML(5MG/ML) SYRINGE As Ordered ONE ×2 (15:16→16:38)
[2021-05-03] MEDS ORDERED: REMIFENTANIL 1MG 3ML VIAL As Ordered ONE (16:27)
[2021-05-03] MEDS ORDERED: DESFLURANE 240 ML INHALANT As Ordered ONE (16:41)
[2021-05-03] MEDS ORDERED: LACRILUBE (AKWA TEARS) OPHTH OINT 3.5 GM As Ordered ONE (18:26)
[2021-05-03] MEDS ORDERED: PERCOCET 5MG/325MG TAB PO PRN (18:40)
[2021-05-03] MEDS ORDERED: ONDANSETRON 4MG/2ML VIAL IV PRN ×2 (18:40→18:45)
[2021-05-03] MEDS ORDERED: LR 1,000 ML IV SCH (18:40)
[2021-05-03] MEDS ORDERED: fentaNYL 100 MCG/2 ML INJECTION IV PRN (18:40)
[2021-05-03] MEDS ORDERED: MORPHINE 2 MG/ML 1ML VIAL (J2270) IV PRN (18:45)
[2021-05-03] MEDS: LR 1,000 ML IV SCH ×2 (18:45→23:44)
[2021-05-03] MEDS ORDERED: TETRACAINE 0.5% OPHTH SOLN 4ML OD PRN (19:05)
[2021-05-03 20:40] VITALS: BP 149/85
[2021-05-03] MEDS: POLYVINYL ALCOHOL OPHTH SOLN 15 ML(LIQUITEARS) OD SCH (21:13)
[2021-05-03] MEDS: HEPARIN SOD (PORCINE) 5000UNITS/ML 1ML VIAL/SYRINGE SQ SCH (21:15)
[2021-05-03] MEDS: AUGMENTIN 500 MG TAB PO SCH (21:15)
[2021-05-03] MEDS: ACETAMINOPHEN TAB 650MG DOSE (2X325MG) PO PRN (21:16)
[2021-05-03] MEDS: traMADol 50 MG TAB PO PRN (21:17)
[2021-05-03 21:36] LABS: BASO % 0.3 % (0.0-1.0); HEMATOCRIT 34.8 % (36.0-47.0); HEMOGLOBIN 11.9 g/dl (12.0-15.5); LYMPH # 0.4 10^3/uL (1.5-5.0); LYMPH % 4.9 % (24.0-44.0); MEAN CORPUSCULAR HEMOGLOBIN 33.6 pg (27.0-33.0); MEAN CORPUSCULAR HGB CONC 34.2 g/dl (32.0-36.5); MEAN CORPUSCULAR VOLUME 98.3 fl (80.0-96.0); MONO # 0.1 10^3/uL (0.0-0.8); MONO % 1.6 % (2.0-8.0); NEUTROPHILS # 7.3 10^3/uL (1.5-8.5); NEUTROPHILS % 92.9 % (36.0-66.0); PLATELET COUNT, AUTOMATED 253 10^3/uL (150-450); RED BLOOD COUNT 3.54 10^6/uL (4.00-5.40); WHITE BLOOD COUNT 7.9 10^3/uL (4.0-10.0)
[2021-05-03] MEDS ORDERED: LEVALBUTEROL 1.25 MG/0.5 ML CONCENTRATE NEB INH PRN (21:45)
[2021-05-03 22:00] VITALS: BP 144/83
[2021-05-03 22:14] LABS: ALBUMIN 3.2 GM/DL (3.2-5.2); ALT/SGPT 43 U/L (12-78); BILIRUBIN,TOTAL 0.2 MG/DL (0.2-1.0); BLOOD UREA NITROGEN 16 MG/DL (7-18); CALCIUM LEVEL 9.5 MG/DL (8.5-10.1); CARBON DIOXIDE LEVEL 27 MEQ/L (21-32); CHLORIDE LEVEL 104 MEQ/L (98-107); CREATININE FOR GFR 0.75 MG/DL (0.55-1.30); GLOMERULAR FILTRATION RATE > 60.0 (>58); GLUCOSE, FASTING 218 MG/DL (70-100); POTASSIUM SERUM 4.1 MEQ/L (3.5-5.1); SODIUM LEVEL 139 MEQ/L (136-145); TOTAL PROTEIN 6.4 GM/DL (6.4-8.2)
[2021-05-03 23:00] VITALS: BP 104/74
[2021-05-03] MEDS: TETRACAINE 0.5% OPHTH SOLN 4ML OD PRN (23:39)
[2021-05-04] MEDS ORDERED: LR 1,000 ML IV ONE
[2021-05-04 01:48] VITALS: O2SAT 96
[2021-05-04] MEDS: ACETAMINOPHEN TAB 650MG DOSE (2X325MG) PO PRN (05:21)
[2021-05-04] MEDS: LR 1,000 ML IV SCH (05:21)
[2021-05-04] MEDS: HEPARIN SOD (PORCINE) 5000UNITS/ML 1ML VIAL/SYRINGE SQ SCH (05:22)
[2021-05-04] MEDS: traMADol 50 MG TAB PO PRN (05:22)
[2021-05-04] MEDS: TETRACAINE 0.5% OPHTH SOLN 4ML OD PRN ×2 (05:27→09:00)
[2021-05-04 06:00] VITALS: BP 135/73
[2021-05-04] MEDS ORDERED: CIPROFLOXACIN 500MG TABLET PO SCH (06:00)
[2021-05-04 06:12] LABS: HEMATOCRIT 31.2 % (36.0-47.0)
[2021-05-04 06:14] LABS: BASO % 0.3 % (0.0-1.0); EOS % 0.2 % (0.0-3.0); HEMATOCRIT 31.4 % (36.0-47.0); HEMOGLOBIN 10.6 g/dl (12.0-15.5); LYMPH # 0.9 10^3/uL (1.5-5.0); LYMPH % 13.8 % (24.0-44.0); MEAN CORPUSCULAR HEMOGLOBIN 33.5 pg (27.0-33.0); MEAN CORPUSCULAR HGB CONC 33.8 g/dl (32.0-36.5); MEAN CORPUSCULAR VOLUME 99.4 fl (80.0-96.0); MONO # 0.7 10^3/uL (0.0-0.8); MONO % 10.8 % (2.0-8.0); NEUTROPHILS # 4.8 10^3/uL (1.5-8.5); NEUTROPHILS % 74.6 % (36.0-66.0); PLATELET COUNT, AUTOMATED 242 10^3/uL (150-450); RED BLOOD COUNT 3.16 10^6/uL (4.00-5.40); WHITE BLOOD COUNT 6.4 10^3/uL (4.0-10.0)
[2021-05-04 06:40] LABS: PERCENT SATURATION 55.4 % (13.2-45.0)
[2021-05-04 06:46] LABS: BLOOD UREA NITROGEN 12 MG/DL (7-18); CALCIUM LEVEL 8.7 MG/DL (8.5-10.1); CARBON DIOXIDE LEVEL 27 MEQ/L (21-32); CHLORIDE LEVEL 109 MEQ/L (98-107); GLOMERULAR FILTRATION RATE > 60.0 (>58); GLUCOSE, FASTING 83 MG/DL (70-100); POTASSIUM SERUM 4.1 MEQ/L (3.5-5.1); SODIUM LEVEL 141 MEQ/L (136-145); THYROID STIMULATING HORMONE 0.883 uIU/ML (0.358-3.740)
[2021-05-04] MEDS ORDERED: CIPR-249 PO (09:29)
[2021-05-04] MEDS ORDERED: TRAM50TA2 PO (09:29)
[2021-05-04] MEDS ORDERED: [UNRECOGNIZED DRUG - CODE] OD (09:29)
[2021-05-04] MEDS ORDERED: SULF1TAB23 PO (09:45)
[2021-05-04] MEDS: AUGMENTIN 500 MG TAB PO SCH (10:49)
[2021-05-04] MEDS: POLYVINYL ALCOHOL OPHTH SOLN 15 ML(LIQUITEARS) OD SCH (10:49)
[2021-07-20] MEDS ORDERED: MONT10TA97 PO (14:34)
[2021-07-20] MEDS ORDERED: ANAS1TAB2 PO (14:56)
[2021-07-20] MEDS ORDERED: DESV25TA PO (14:57)
[2021-08-10] MEDS ORDERED: CALC-239 PO (13:15)
[2021-08-10] MEDS ORDERED: DESV25TA PO (13:19)
[2021-08-10] MEDS ORDERED: ANAS1TAB2 PO (13:19)
== END 2021-05-04 12:45 | disposition home or self-care (01) ==
LOC: M SDC 11:28 → M MS5PR 11:29 → M SDC 05-04 12:45
PROVIDERS: ADMIT Surgery; ATTEND Surgery
DX: C50.911 Malignant neoplasm of unspecified site of right female breast (principal); R59.9 Enlarged lymph nodes, unspecified; J45.909 Unspecified asthma, uncomplicated; Z92.21 Personal history of antineoplastic chemotherapy; Z79.51 Long term (current) use of inhaled steroids; F41.9 Anxiety disorder, unspecified
CPT/HCPCS: 36415; 38745; 64450; 80048; 80053; 81025; 82607; 82728; 82747; 83036; 83550; 83605; 83735; 84443; 84484; 85025; 85046; 86850; 86900; 86901; 88302; 88307; 88342; 93005; 96360; 96361; 96372; J0131; J0330; J0690; J1100; J1644; J2250; J2370; J2405; J2765; J3010; Q9968

== ENCOUNTER → 2021-05-15 | Outpatient (CLI) | payer BC ==
[~2021-05-15] MED LIST changes: +ANAS1TAB2 PO; +CIPR-249 PO; +DESV25TA PO; -HEPARIN SOD (PORCINE) 5000UNITS/ML 1ML VIAL/SYRINGE SQ ONE; -LR 1,000 ML IV ONE; +SULF1TAB23 PO; +[UNRECOGNIZED DRUG - CODE] OD; -ceFAZolin SOD 2 GM in IV 1 EA IV ONE
== END ==
LOC: M ONCR 12:51
PROVIDERS: ATTEND General Practice
DX: C50.111 Malignant neoplasm of central portion of right female breast (principal); Z79.899 Other long term (current) drug therapy

== ENCOUNTER → 2021-05-21 | Outpatient (REF) | payer BC ==
[~2021-05-21] MED LIST changes: +CALC-239 PO
== END ==
LOC: M LAB REF 11:07
PROVIDERS: ATTEND Plastic Surgery Surgery of the Hand
DX: Z48.89 Encounter for other specified surgical aftercare (principal); Z42.1 Encounter for breast reconstruction following mastectomy; C50.411 Malignant neoplasm of upper-outer quadrant of right female breast

== ENCOUNTER 2021-06-14 09:53 | Outpatient (RCR) | payer BC ==
[~2021-06-14 09:53] MED LIST changes: +ALBU8.5H; -ALBU8.5H INH; -ANAS1TAB2 PO; -CALC-239 PO; -DESV25TA PO; +MONT10TA10 PO; -MONT10TA97 PO; +PROC10TA4 PO; -PROC10TA5 PO
== END 2021-06-15 ==
LOC: M ONCR 09:53
PROVIDERS: ATTEND General Practice
DX: C50.111 Malignant neoplasm of central portion of right female breast (principal)

== ENCOUNTER → 2021-07-16 | Outpatient (RCR) | payer BC, OTHER ==
[~2021-07-16] MED LIST changes: -ALBU8.5H; +ALBU8.5H INH; +ANAS1TAB2 PO; +CALC-239 PO; +DESV25TA PO; -MONT10TA10 PO; +MONT10TA97 PO; -PROC10TA4 PO; +PROC10TA5 PO
== END ==
LOC: M ONCR 06-19 15:00
PROVIDERS: ATTEND General Practice
DX: C50.111 Malignant neoplasm of central portion of right female breast (principal)

== ENCOUNTER → 2021-08-13 | Outpatient (RCR) | payer OTHER | LOC: M ONCR 07-17 14:03 | PROVIDERS: ATTEND General Practice | DX: C50.111 Malignant neoplasm of central portion of right female breast (principal) ==

== ENCOUNTER 2021-08-16 13:58 | Outpatient (RCR) | payer OTHER | END 2021-09-13 | LOC: M ONCR 13:58 | PROVIDERS: ATTEND General Practice | DX: C50.111 Malignant neoplasm of central portion of right female breast (principal) ==

== ENCOUNTER → 2021-08-28 | Outpatient (CLI) | payer OTHER | LOC: M WHC 13:39 | PROVIDERS: ATTEND Internal Medicine Hematology & Oncology | DX: M85.89 Other specified disorders of bone density and structure, multiple sites (principal) ==

== ENCOUNTER → 2021-09-05 | Outpatient (CLI) | payer OTHER | LOC: M WHC 13:49 | PROVIDERS: ATTEND Surgery | DX: C50.911 Malignant neoplasm of unspecified site of right female breast (principal) ==

== ENCOUNTER → 2021-12-10 | Outpatient (CLI) | payer OTHER, BC ==
[~2021-12-10] MED LIST changes: +TAMO20TA8 PO
== END ==
LOC: M LABSMTC 09:20
PROVIDERS: ATTEND Anesthesiology
DX: Z01.818 Encounter for other preprocedural examination (principal); Z11.52 Encounter for screening for COVID-19

== ENCOUNTER 2021-12-13 08:00 | Observation (INO) | payer OTHER ==
[~2021-12-13] VITALS: Ht 162.6 cm; Wt 57.8 kg
[~2021-12-13 08:00] MED LIST changes: +ceFAZolin SOD 2 GM in IV 1 EA IV ONE
[2021-12-13] MEDS ORDERED: LIDOCAINE PRES-FREE 2% 10ML AMP As Ordered ONE (08:21)
[2021-12-13] MEDS ORDERED: MIDAZOLAM INJ 2MG/2ML VIAL (J2250 PER 1MG) As Ordered ONE (08:21)
[2021-12-13] MEDS ORDERED: ROCURONIUM BROMIDE 50 MG/5 ML VIAL As Ordered ONE (08:21)
[2021-12-13] MEDS ORDERED: fentaNYL 100 MCG/2 ML INJECTION As Ordered ONE (08:21)
[2021-12-13] MEDS ORDERED: propofoL 200 MG/20 ML VIAL As Ordered ONE (08:21)
[2021-12-13] MEDS ORDERED: LIDOCAINE 2% INJ 100 MG/5 ML SYRINGE As Ordered ONE (08:24)
[2021-12-13] MEDS ORDERED: LR 1,000 ML IV SCH ×2 (08:25→09:25)
[2021-12-13] MEDS ORDERED: ALBUTEROL SULFATE 2.5 MG/0.5 ML INH NEB SOLN NEB ONE (08:55)
[2021-12-13] MEDS: SCOPOLAMINE 1MG TRANSDERMAL PATCH TOP SCH (09:09)
[2021-12-13] MEDS ORDERED: MEPERIDINE INJ 25 MG/ML VIAL (J2175) IV PRN (09:25)
[2021-12-13] MEDS ORDERED: METOCLOPRAMIDE INJ 10MG/2ML VIAL (J2765 PER 1) IV PRN (09:25)
[2021-12-13] MEDS ORDERED: oxyCODONE 5MG TAB PO PRN (09:25)
[2021-12-13] MEDS ORDERED: HYDROMORPHONE HCL 0.5 MG/ 0.5 ML SYRINGE (J1170 PER 1) IV PRN (09:25)
[2021-12-13] MEDS ORDERED: ONDANSETRON 4MG 2ML VIAL IV PRN ×2 (09:25→13:00)
[2021-12-13] MEDS ORDERED: fentaNYL 100 MCG/2 ML INJECTION IV PRN (09:25)
[2021-12-13] MEDS ORDERED: BUPIVACAINE LIPOSOME/PF 1.3% 20ML VIAL (13.3MG/ML)(EXPAREL) As Ordered ONE (09:30)
[2021-12-13] MEDS ORDERED: BUPIVACAINE HCL 0.25% 10ML VIAL As Ordered ONE (09:30)
[2021-12-13] MEDS ORDERED: GENTAMICIN SULF 80MG/2ML VIAL As Ordered ONE (09:30)
[2021-12-13] MEDS ORDERED: PHENYLephrine 500MCG 5ML (100MCG/ML) SYRINGE As Ordered ONE (10:13)
[2021-12-13] MEDS ORDERED: dexameTHASONE 4 MG/ML 1ML VIAL (J1100 PER 1MG) As Ordered ONE ×2 (10:14→10:15)
[2021-12-13] MEDS ORDERED: SUGAMMADEX SODIUM 500 MG/5 ML VIAL (BRIDION) As Ordered ONE (10:33)
[2021-12-13] MEDS ORDERED: ACETAMINOPHEN 1000MG 100ML IV BTL (OFIRMEV) (J0131 PER 10MG) As Ordered ONE (10:33)
[2021-12-13] MEDS ORDERED: ONDANSETRON 4MG 2ML VIAL As Ordered ONE (10:33)
[2021-12-13] MEDS ORDERED: HYDROmorphone HCL 2MG/ML 1ML VIAL As Ordered ONE (10:34)
[2021-12-13] MEDS ORDERED: METOCLOPRAMIDE INJ 10MG/2ML VIAL (J2765 PER 1) As Ordered ONE (10:34)
[2021-12-13] MEDS ORDERED: ALBUTEROL 6.7GM INHALER **FOR ANES. CART/OMNICELL ONLY As Ordered ONE (11:48)
[2021-12-13] MEDS ORDERED: ACETAMINOPHEN TAB 650MG DOSE (2X325MG) PO PRN (13:00)
[2021-12-13] MEDS ORDERED: ceFAZolin SOD 2 GM in IV 1 EA IV ONE (13:10)
[2021-12-13] MEDS ORDERED: ceFAZolin 2 GM/D5W 50 ML IV BAG (J0690 PER 500MG) As Ordered ONE (13:27)
[2021-12-13 15:05] VITALS: BP 119/67
[2021-12-13 15:35] VITALS: BP 118/68
[2021-12-13] MEDS: ALBUTEROL SULFATE 2.5 MG/0.5 ML INH NEB SOLN NEB SCH ×2 (15:40→20:12)
[2021-12-13 17:30] VITALS: BP 114/69
[2021-12-13] MEDS: MONTELUKAST 10 MG TAB PO SCH (18:03)
[2021-12-13] MEDS: LR 1,000 ML IV SCH (18:24)
[2021-12-13 19:30] VITALS: BP 117/68
[2021-12-13 20:30] VITALS: BP 115/71
[2021-12-13 22:00] VITALS: BP 115/75
[2021-12-13] MEDS: traMADol 50 MG TAB PO PRN (22:37)
[2021-12-14 02:00] VITALS: BP 115/70
[2021-12-14] MEDS: ALBUTEROL SULFATE 2.5 MG/0.5 ML INH NEB SOLN NEB SCH ×2 (02:00→07:19)
[2021-12-14] MEDS: LR 1,000 ML IV SCH (02:20)
[2021-12-14 06:00] VITALS: BP 120/72
[2021-12-14] MEDS: traMADol 50 MG TAB PO PRN ×2 (06:51→12:57)
[2021-12-14] MEDS: SCOPOLAMINE 1MG TRANSDERMAL PATCH TOP SCH (08:55)
[2021-12-14] MEDS: MONTELUKAST 10 MG TAB PO SCH (09:00)
[2021-12-14] MEDS ORDERED: ALBUTEROL SULFATE 2.5 MG/0.5 ML INH NEB SOLN NEB ONE (10:40)
[2021-12-14] MEDS ORDERED: TRAM50TA2 PO (11:50)
== END 2021-12-14 13:06 | disposition home or self-care (01) ==
LOC: M SDC 08:00 → M MS5PR 08:01 → M SDC 15:00 → M MS5PR 15:00 → M SDC 12-14 13:06
PROVIDERS: ADMIT Plastic Surgery Surgery of the Hand; ATTEND Plastic Surgery Surgery of the Hand
DX: N64.89 Other specified disorders of breast (principal); Z90.11 Acquired absence of right breast and nipple; Z85.3 Personal history of malignant neoplasm of breast; N64.81 Ptosis of breast
CPT/HCPCS: 11970; 19316; 81025; 88300; 88302; 94640; C9290; J0131; J0690; J1100; J1170; J1580; J2250; J2370; J2405; J2765; J3010; L8600

== ENCOUNTER 2021-12-27 10:28 | Day surgery (SDC) | payer OTHER ==
[~2021-12-27] VITALS: Ht 162.6 cm; Wt 56.9 kg
[~2021-12-27 10:28] MED LIST changes: +LIDOCAINE 2% INJ 100 MG/5 ML SYRINGE As Ordered ONE; +MIDAZOLAM INJ 2MG/2ML VIAL (J2250 PER 1MG) As Ordered ONE; +ONDANSETRON 4MG 2ML VIAL As Ordered ONE; -ceFAZolin SOD 2 GM in IV 1 EA IV ONE; +dexameTHASONE 4 MG/ML 1ML VIAL (J1100 PER 1MG) As Ordered ONE; +fentaNYL 250 MCG/5 ML INJECTION As Ordered ONE; +propofoL 200 MG/20 ML VIAL As Ordered ONE
[2021-12-27] MEDS ORDERED: SCOPOLAMINE 1MG TRANSDERMAL PATCH TOP ONE (11:10)
[2021-12-27] MEDS ORDERED: BUPIVACAINE HCL 0.25% 10ML VIAL As Ordered ONE (11:32)
[2021-12-27] MEDS ORDERED: BUPIVACAINE LIPOSOME/PF 1.3% 20ML VIAL (13.3MG/ML)(EXPAREL) As Ordered ONE (11:32)
[2021-12-27] MEDS ORDERED: GENTAMICIN SULF 80MG/2ML VIAL As Ordered ONE (11:32)
[2021-12-27] MEDS ORDERED: ceFAZolin 2 GM/D5W 50 ML IV BAG (J0690 PER 500MG) As Ordered ONE (12:02)
[2021-12-27 12:13] LABS: HEMATOCRIT 37.3 % (36.0-47.0); HEMOGLOBIN 12.7 g/dl (12.0-15.5); MEAN CORPUSCULAR HEMOGLOBIN 33.5 pg (27.0-33.0); MEAN CORPUSCULAR VOLUME 98.4 fl (80.0-96.0); PLATELET COUNT, AUTOMATED 247 10^3/uL (150-450); RED BLOOD COUNT 3.79 10^6/uL (4.00-5.40); WHITE BLOOD COUNT 5.7 10^3/uL (4.0-10.0)
[2021-12-27] MEDS ORDERED: ceFAZolin SOD 2 GM in IV 1 EA IV ONE (12:15)
[2021-12-27] MEDS ORDERED: PHENYLephrine 500MCG 5ML (100MCG/ML) SYRINGE As Ordered ONE (12:34)
[2021-12-27] MEDS ORDERED: ROCURONIUM BROMIDE 50 MG/5 ML VIAL As Ordered ONE (12:45)
[2021-12-27] MEDS ORDERED: ACETAMINOPHEN 1000MG 100ML IV BTL (OFIRMEV) (J0131 PER 10MG) As Ordered ONE (12:49)
[2021-12-27] MEDS ORDERED: ePHEDrine SULFATE 25 MG/5 ML(5MG/ML) SYRINGE As Ordered ONE (12:54)
[2021-12-27 13:06] LABS: BLOOD UREA NITROGEN 15 MG/DL (7-18); CALCIUM LEVEL 9.2 MG/DL (8.5-10.1); CARBON DIOXIDE LEVEL 25 MEQ/L (21-32); CHLORIDE LEVEL 109 MEQ/L (98-107); CREATININE FOR GFR 0.57 MG/DL (0.55-1.30); GLOMERULAR FILTRATION RATE > 60.0 (>58); GLUCOSE, FASTING 91 MG/DL (70-100); POTASSIUM SERUM 4.3 MEQ/L (3.5-5.1); SODIUM LEVEL 142 MEQ/L (136-145)
[2021-12-27] MEDS ORDERED: TRAM50TA2 PO (13:19)
[2021-12-27] MEDS ORDERED: fentaNYL 100 MCG/2 ML INJECTION IV PRN (13:40)
[2021-12-27] MEDS ORDERED: oxyCODONE 5MG TAB PO PRN (13:40)
[2021-12-27] MEDS ORDERED: MORPHINE 2 MG/ML 1ML VIAL IV PRN (13:40)
[2021-12-27] MEDS ORDERED: ONDANSETRON 4MG 2ML VIAL IV PRN (13:40)
[2021-12-27] MEDS ORDERED: LR 1,000 ML IV SCH (13:40)
[2021-12-27] MEDS ORDERED: ALBUTEROL SULFATE 2.5 MG/0.5 ML INH NEB SOLN INH ONE (13:40)
[2021-12-27] MEDS ORDERED: METOCLOPRAMIDE INJ 10MG/2ML VIAL (J2765 PER 1) IV PRN (13:40)
[2021-12-27] MEDS ORDERED: MORPHINE 2 MG/ML 1ML VIAL As Ordered ONE (13:41)
[2021-12-27 14:49] VITALS: BP 170/85
== END 2021-12-27 15:12 | disposition home or self-care (01) ==
LOC: M SDC 10:28
PROVIDERS: ATTEND Plastic Surgery Surgery of the Hand
DX: C50.011 Malignant neoplasm of nipple and areola, right female breast (principal); T85.41XA Breakdown (mechanical) of breast prosthesis and implant, initial encounter; Y81.2 Prosthetic and other implants, materials and accessory general- and plastic-surgery devices associated with adverse incidents; N65.0 Deformity of reconstructed breast; Z79.899 Other long term (current) drug therapy
CPT/HCPCS: 19328; 36415; 80048; 81025; 85027; 87070; 87076; 87205; 87426; 88300; 88304; C9290; J0131; J0690; J1100; J1580; J2250; J2270; J2370; J2405; J3010

== ENCOUNTER → 2022-01-02 | Outpatient (REF) | payer OTHER ==
[~2022-01-02] MED LIST changes: -LIDOCAINE 2% INJ 100 MG/5 ML SYRINGE As Ordered ONE; -MIDAZOLAM INJ 2MG/2ML VIAL (J2250 PER 1MG) As Ordered ONE; -ONDANSETRON 4MG 2ML VIAL As Ordered ONE; -dexameTHASONE 4 MG/ML 1ML VIAL (J1100 PER 1MG) As Ordered ONE; -fentaNYL 250 MCG/5 ML INJECTION As Ordered ONE; -propofoL 200 MG/20 ML VIAL As Ordered ONE
[2022-01-02 09:50] LABS: BASO % 0.6 % (0.0-1.0); EOS # 0.6 10^3/uL (0.0-0.5); EOS % 8.9 % (0.0-3.0); HEMOGLOBIN 13.2 g/dl (12.0-15.5); LYMPH # 0.7 10^3/uL (1.5-5.0); LYMPH % 10.6 % (24.0-44.0); MEAN CORPUSCULAR HEMOGLOBIN 34.1 pg (27.0-33.0); MEAN CORPUSCULAR HGB CONC 34.7 g/dl (32.0-36.5); MEAN CORPUSCULAR VOLUME 98.2 fl (80.0-96.0); MONO # 0.5 10^3/uL (0.0-0.8); MONO % 6.7 % (2.0-8.0); NEUTROPHILS % 72.9 % (36.0-66.0); PLATELET COUNT, AUTOMATED 279 10^3/uL (150-450); RED BLOOD COUNT 3.87 10^6/uL (4.00-5.40); WHITE BLOOD COUNT 6.9 10^3/uL (4.0-10.0)
[2022-01-02 10:19] LABS: ALBUMIN 3.7 GM/DL (3.2-5.2); ALT/SGPT 17 U/L (12-78); BILIRUBIN,TOTAL 0.3 MG/DL (0.2-1.0); BLOOD UREA NITROGEN 15 MG/DL (7-18); CALCIUM LEVEL 9.6 MG/DL (8.5-10.1); CARBON DIOXIDE LEVEL 25 MEQ/L (21-32); CHLORIDE LEVEL 109 MEQ/L (98-107); CHOLESTEROL LEVEL 207 MG/DL (<200); CHOLESTEROL RISK RATIO 2.493 (<5); FERRITIN 557 NG/ML (8-252); GLOMERULAR FILTRATION RATE > 60.0 (>58); GLUCOSE, FASTING 90 MG/DL (70-100); HDL CHOLESTEROL 83 MG/DL (>40); IRON (FE) 144 UG/DL (50-170); LDL CHOLESTEROL 100 MG/DL (<100); NON-HDL-C 124 MG/DL; POTASSIUM SERUM 4.4 MEQ/L (3.5-5.1); SODIUM LEVEL 140 MEQ/L (136-145); TOTAL IRON BINDING CAPACITY 244 UG/DL (250-450); TRIGLYCERIDES LEVEL 121 MG/DL (<150)
[2022-01-02 10:53] LABS: VITAMIN B12 LEVEL 419 PG/ML (247-911)
== END ==
LOC: M LAB REF 09:25
PROVIDERS: ATTEND Nurse Practitioner Family
DX: D75.89 Other specified diseases of blood and blood-forming organs (principal); E83.19 Other disorders of iron metabolism; Z13.220 Encounter for screening for lipoid disorders

== ENCOUNTER → 2022-01-08 | Outpatient (POV) | payer OTHER ==
[~2022-01-08] VITALS: Ht 162.6 cm; Wt 57.7 kg
[2022-01-08 09:00] VITALS: BP 153/85
== END ==
LOC: M IRPOV 08:56
PROVIDERS: ATTEND Radiology Diagnostic Radiology
DX: Z45.2 Encounter for adjustment and management of vascular access device (principal)

== ENCOUNTER → 2022-01-10 | Outpatient (CLI) | payer OTHER | LOC: M PLALAB 11:05 → M PLAIMG 11:05 | PROVIDERS: ATTEND Nurse Practitioner Family | DX: R06.02 Shortness of breath (principal) ==

== ENCOUNTER → 2022-01-13 | Outpatient (CLI) | payer OTHER | LOC: M LABSMTC 10:50 | PROVIDERS: ATTEND Anesthesiology | DX: Z01.812 Encounter for preprocedural laboratory examination (principal); Z20.822 Contact with and (suspected) exposure to COVID-19 ==

== ENCOUNTER → 2022-01-14 | Outpatient (CLI) | payer OTHER | LOC: M CARPUL 07:38 | PROVIDERS: ATTEND Nurse Practitioner Family | DX: R94.2 Abnormal results of pulmonary function studies (principal); R06.02 Shortness of breath ==

== ENCOUNTER → 2022-01-17 | Outpatient (CLI) | payer OTHER ==
[~2022-01-17] MED LIST changes: +LIDOCAINE 1% MDV 20ML VIAL As Ordered ONE; +MIDAZOLAM INJ 2MG/2ML VIAL (J2250 PER 1MG) As Ordered ONE; +NS 1,000 ML IV SCH; +ceFAZolin 2 GM/D5W 50 ML IV BAG (J0690 PER 500MG) As Ordered ONE; +ceFAZolin SOD 2 GM in IV 1 EA IV ONE; +diphenhydrAMINE 50MG/ML VIAL (J1200) As Ordered ONE; +fentaNYL 100 MCG/2 ML INJECTION As Ordered ONE
[2022-01-17 16:30] VITALS: BP 134/77
== END ==
LOC: M IRPRO 11:15
PROVIDERS: ATTEND Nurse Practitioner
DX: C50.911 Malignant neoplasm of unspecified site of right female breast (principal); Z45.2 Encounter for adjustment and management of vascular access device
CPT/HCPCS: 36590; 99152; J0690; J1200; J1644; J2250; J3010

== ENCOUNTER → 2022-02-20 | Outpatient (CLI) | payer OTHER ==
[~2022-02-20] MED LIST changes: +GABA-282 PO; -LIDOCAINE 1% MDV 20ML VIAL As Ordered ONE; -MIDAZOLAM INJ 2MG/2ML VIAL (J2250 PER 1MG) As Ordered ONE; -NS 1,000 ML IV SCH; -ceFAZolin 2 GM/D5W 50 ML IV BAG (J0690 PER 500MG) As Ordered ONE; -ceFAZolin SOD 2 GM in IV 1 EA IV ONE; -diphenhydrAMINE 50MG/ML VIAL (J1200) As Ordered ONE; -fentaNYL 100 MCG/2 ML INJECTION As Ordered ONE
== END ==
LOC: M ONCR 11:00
PROVIDERS: ATTEND General Practice
DX: C50.111 Malignant neoplasm of central portion of right female breast (principal); R07.89 Other chest pain; R23.2 Flushing; Z79.51 Long term (current) use of inhaled steroids; Z79.811 Long term (current) use of aromatase inhibitors; Z79.899 Other long term (current) drug therapy; Z90.11 Acquired absence of right breast and nipple; Z92.21 Personal history of antineoplastic chemotherapy; Z92.3 Personal history of irradiation; Z98.86 Personal history of breast implant removal

== ENCOUNTER → 2022-04-24 | Outpatient (CLI) | payer OTHER ==
[2022-04-24 14:03] LABS: BASO % 0.8 % (0.0-1.0); EOS # 0.4 10^3/uL (0.0-0.5); EOS % 8.7 % (0.0-3.0); HEMATOCRIT 36.6 % (36.0-47.0); HEMOGLOBIN 12.6 g/dl (12.0-15.5); LYMPH % 20.4 % (24.0-44.0); MEAN CORPUSCULAR HEMOGLOBIN 34.2 pg (27.0-33.0); MEAN CORPUSCULAR HGB CONC 34.4 g/dl (32.0-36.5); MEAN CORPUSCULAR VOLUME 99.5 fl (80.0-96.0); MONO # 0.5 10^3/uL (0.0-0.8); MONO % 10.5 % (2.0-8.0); NEUTROPHILS % 59.4 % (36.0-66.0); PLATELET COUNT, AUTOMATED 216 10^3/uL (150-450); RED BLOOD COUNT 3.68 10^6/uL (4.00-5.40); WHITE BLOOD COUNT 5.1 10^3/uL (4.0-10.0)
[2022-04-24 15:46] LABS: PERCENT SATURATION 26.1 % (13.2-45.0)
== END ==
LOC: M PLALAB 09:54
PROVIDERS: ATTEND Nurse Practitioner Family
DX: D75.89 Other specified diseases of blood and blood-forming organs (principal); E83.119 Hemochromatosis, unspecified; E83.110 Hereditary hemochromatosis

== ENCOUNTER → 2022-05-06 | Outpatient (CLI) | payer OTHER | LOC: M RAD 08:02 | PROVIDERS: ATTEND Nurse Practitioner Family | DX: E83.110 Hereditary hemochromatosis (principal) ==

== ENCOUNTER → 2022-07-18 | Outpatient (CLI) | payer OTHER | LOC: M WHC 09:14 | PROVIDERS: ATTEND Nurse Practitioner Women's Health | DX: C50.911 Malignant neoplasm of unspecified site of right female breast (principal); C77.9 Secondary and unspecified malignant neoplasm of lymph node, unspecified | CPT/HCPCS: 77065; G0279 ==

== ENCOUNTER → 2022-10-10 | Outpatient (CLI) | payer OTHER | LOC: M ONCR 07:52 | PROVIDERS: ATTEND General Practice | DX: C50.111 Malignant neoplasm of central portion of right female breast (principal); R22.2 Localized swelling, mass and lump, trunk; Z79.890 Hormone replacement therapy; Z79.899 Other long term (current) drug therapy; Z90.11 Acquired absence of right breast and nipple; Z92.21 Personal history of antineoplastic chemotherapy; Z92.3 Personal history of irradiation; Z98.890 Other specified postprocedural states ==

== ENCOUNTER → 2022-10-14 | Outpatient (CLI) | payer OTHER ==
[2022-10-14 14:23] LABS: BASO % 0.9 % (0.0-1.0); EOS # 0.3 10^3/uL (0.0-0.5); EOS % 6.6 % (0.0-3.0); HEMATOCRIT 38.4 % (36.0-47.0); HEMOGLOBIN 13.4 g/dl (12.0-15.5); LYMPH # 1.2 10^3/uL (1.5-5.0); LYMPH % 26.7 % (24.0-44.0); MEAN CORPUSCULAR HEMOGLOBIN 34.2 pg (27.0-33.0); MEAN CORPUSCULAR HGB CONC 34.9 g/dl (32.0-36.5); MONO # 0.5 10^3/uL (0.0-0.8); MONO % 10.9 % (2.0-8.0); NEUTROPHILS # 2.4 10^3/uL (1.5-8.5); NEUTROPHILS % 54.7 % (36.0-66.0); PLATELET COUNT, AUTOMATED 231 10^3/uL (150-450); RED BLOOD COUNT 3.92 10^6/uL (4.00-5.40); WHITE BLOOD COUNT 4.4 10^3/uL (4.0-10.0)
[2022-10-14 14:58] LABS: THYROID STIMULATING HORMONE 4.612 uIU/ML (0.55-4.78)
[2022-10-14 14:59] LABS: ALBUMIN 4.2 G/DL (3.2-5.2); ALKALINE PHOSPHATASE 102 U/L (46-116); ALT/SGPT 17 U/L (7.0-40); AST/SGOT 18 U/L (<34); BILIRUBIN,TOTAL 0.4 MG/DL (0.3-1.2); BLOOD UREA NITROGEN 18 MG/DL (9-23); CALCIUM LEVEL 9.7 MG/DL (8.5-10.1); CARBON DIOXIDE LEVEL 28 MMOL/L (20-31); CHLORIDE LEVEL 105 MMOL/L (98-107); CREATININE FOR GFR 0.65 MG/DL (0.55-1.30); FERRITIN 241.8 NG/ML (7.3-270.7); FREE T4 0.95 NG/DL (0.89-1.76); GLOMERULAR FILTRATION RATE > 60.0 (>51); GLUCOSE, FASTING 79 MG/DL (60-100); POTASSIUM SERUM 4.8 MMOL/L (3.5-5.1); SODIUM LEVEL 138 MMOL/L (136-145); TOTAL PROTEIN 7.3 G/DL (5.7-8.2)
[2022-10-14 15:02] LABS: VITAMIN B12 LEVEL 406 PG/ML (211-911)
== END ==
LOC: M PLALAB 12:00
PROVIDERS: ATTEND Family Medicine
DX: J45.20 Mild intermittent asthma, uncomplicated (principal)

== ENCOUNTER → 2023-10-22 | Outpatient (CLI) | payer BC | LOC: M ONCR 07:57 | PROVIDERS: ATTEND General Practice | DX: Z08 Encounter for follow-up examination after completed treatment for malignant neoplasm (principal); Z85.3 Personal history of malignant neoplasm of breast; Z71.2 Person consulting for explanation of examination or test findings; Z79.899 Other long term (current) drug therapy; Z90.11 Acquired absence of right breast and nipple; Z92.21 Personal history of antineoplastic chemotherapy; Z92.3 Personal history of irradiation ==